=== PATIENT | female | born 1940 | race Caucasian/White ===

== ENCOUNTER 2025-06-04 21:37 | Inpatient (IN) | payer MEDICARE, OTHER, SELFPAY ==
[2025-06-04] VITALS (8 sets, daily range): BP systolic 86–115; BP diastolic 43–97
[2025-06-04 17:51] LABS: Hematocrit 35.0 % (37.0-47.0); Hemoglobin 11.0 g/dL (12.0-16.0); Mean Corp Hgb Conc. 31.4 g/dL (33.0-37.0); Mean Corpuscular Volume 89.1 fL (81.0-99.0); Nucleated Red Blood Cells % 0 %; Platelet Count 227 10^3/uL (130-400); Red Cell Dist. Width 18.9 % (11.5-14.5)
[2025-06-04 18:12] LABS: Troponin I < 0.012 ng/ml
[2025-06-04 18:19] LABS: ALT (SGPT) 66 U/L (0-35); AST (SGOT) 62 U/L (14-36); Albumin 2.3 g/dl (3.5-5.0); Alkaline Phosphatase 112 U/L (38-126); Blood Urea Nitrogen 31 mg/dl (7-17); Calcium 7.7 mg/dl (8.4-10.2); Carbon Dioxide 28 mmol/L (22-30); Chloride 106 mmol/L (98-107); Glucose 94 mg/dl (70-99); Potassium 3.8 mmol/L (3.5-5.1); Sodium 138 mmol/L (135-145); Total Protein 5.9 g/dl (6.3-8.2); eGFR 40.05
--- NOTE | 2025-06-04 18:30 | ED.GENMED ---
History of Present Illness
<Hakan Sanchez PA-C - Last Filed: 06/04/25 20:29>
General
Chief Complaint: Breathing Problem
Time Seen by Provider: 06/04/25 17:59
History of Present Illness
History of Present Illness:
84-year-old female presents the emergency department for evaluation of leg edema, leg weakness, and dyspnea. Patient was apparently admitted to [facility] in April for COVID-pneumonia with respiratory failure, was discharged from
there to skilled rehab on supplemental oxygen due to persistent hypoxemia. Within the past several days she was discharged from skilled rehab to assisted living but has been increasingly weak and having difficulty ambulating at her baseline. I do
not have all records immediately available but the daughter tells me that she apparently had her diuretic discontinued at some point in time, it is not clear whether this occurred during her last admission or at a different time. She denies any
fevers, coughing, or shortness of breath at present.
Past History
<Hakan Sanchez PA-C - Last Filed: 06/04/25 20:29>
Past History
ED Past Medical History: HTN and Other (Alcohol issue)
ED Past Surgical History: Gynecological (Breast surgery)
Social History
Tobacco: Non-smoker
Alcohol: Binge drinker
Personal:
Living: with family
Review of Systems
<Hakan Sanchez PA-C - Last Filed: 06/04/25 20:29>
Review of Systems
Allergies reviewed?: Yes
All Other Systems: ROS reviewed and negative except as documented in HPI and ROS
Phy Exam
<Hakan Sanchez PA-C - Last Filed: 06/04/25 20:29>
Physical Exam
Physical Exam:
GEN: Well appearing, NAD, WDWN
HEENT: Oral mucosa moist, no scleral icterus
Cardiac: Regular rate
Lung: No respiratory distress, no tachypnea, rales throughout
MSK: No gross deformity or injuries, 2+ pitting edema BLE
Skin: Good color, no pallor or jaundice, no rashes
Neuro: AO x3, moves all extremities freely
Psych: Calm, cooperative
Scores
<Hakan Sanchez PA-C - Last Filed: 06/04/25 20:29>
Heart Failure Risk
Heart Failure Risk Score: Not Applicable
Course
<Hakan Sanchez PA-C - Last Filed: 06/04/25 20:29>
Orders/Labs/Results
Orders:
Orders
06/04/25 17:23
Electrocardiogram (*1) Urgent
Reason for Study: Other
Other Reason for Exam: Respiratory Distress
Cardiac Monitoring- Treatment ONCE
IV Insert/Care/Rem.- Treatment PRN
CR Chest - 2 Views Urgent
Comment:
Reason For Exam: respiratory distress
06/04/25 17:36
Complete Blood Count/With Diff Urgent
Comprehensive Metabolic Panel Urgent
NT-proBNP Urgent
Troponin I Urgent
06/04/25 18:32
Furosemide [Lasix] 20 mg IV NOW STA
Potassium Chloride [KCl] 20 meq PO NOW STA
06/04/25 21:19
Admit/Transfer Patient As Directed
Co-Sign Provider:
Level of Care: Inpatient admission
Assign to:: Telemetry
Physician / Group: zainab
Diagnosis: pneumonia
Reason for Telemetry: Other
Other Reason for Telemetry: hypotension
Date to Stop Telemetry: 06/06/25
Time to Stop Telemetry: 11:00
Reason for Hospitalization: pneumonia
Expected length of stay greater than two midnights?: Yes
ELOS- Estimated Length of Stay in days: 3
I certify the patient meets the requirements for IP care: Yes
PRN Pain Medication Management As Directed
May give lesser potent ordered pain med per pt: Yes
preference::
Protocol:: Medication orders for pain may be administered in a
manner that supports deferring to patient preference
when the pt is:
- Requesting an ordered lesser potent pain medication.
Least to most potent pain medications are defined
as: acetaminophen < NSAID < tramadol < opioids
(morphine, oxycodone, hydromorphone).
- Requesting a lesser dose of the same medication IF
ORDERED.
- Requesting a less intrusive route of administration
if both routes are prescribed by the provider (PO <
IV).
06/04/25 21:25
Code Status As Directed
Resuscitation Status: Full Code
06/04/25 22:50
Acetaminophen [Tylenol] 650 mg PO Q4HPRN PRN
Atorvastatin [Lipitor] 20 mg PO HS
Ipratropium/Albuterol Sulfate [Duoneb] 3 ml INH R Q4HPRN PRN
Latanoprost [Xalatan Ophthalmic Solution] 1 drop LEFT EYE HS
Lorazepam [Ativan] 0.5 mg PO DAILYPRN PRN anxiety
Melatonin 5 mg PO HS
06/04/25 22:50
Activity As Directed
Activity Level: Out of Bed-Early Mobility
Vital Signs As Directed
Frequency: Per unit guidelines
06/04/25 23:00
Loratadine [Claritin] 10 mg PO HS
06/05/25 01:30
Complete Blood Count/No Diff IN AM
06/05/25 01:31
Comprehensive Metabolic Panel IN AM
06/05/25 06:00
Levothyroxine [Synthroid] 75 mcg PO DAILY@0600
06/05/25 08:00
Amiodarone [Pacerone] 200 mg PO BID
Apixaban [Eliquis] 5 mg PO BID
Brimonidine [Alphagan 0.2% Eye Drops] 1 drop LEFT EYE BID
Carvedilol [Coreg] 3.125 mg PO BID
Dapagliflozin [Farxiga] 10 mg PO DAILY
Dorzolamide HCl [Trusopt 2% Ophthalmic Solution] 1 drop LEFT EYE BID
Escitalopram Oxalate [Lexapro] 15 mg PO DAILY
Ferrous Sulfate [Feosol] 325 mg PO DAILY
Fluticasone/Salmeterol 115/21 [Advair Hfa 115/21 Mcg Inhaler] 2 puff INH R BID
Oxybutynin Chloride [Ditropan] 5 mg PO TID
Potassium Chloride [KCl] 20 meq PO DAILY
06/05/25 12:00
Digoxin [Lanoxin] 125 mcg PO NOON
06/06/25 10:46
Complete Blood Count/No Diff IN AM
Comprehensive Metabolic Panel IN AM
06/07/25 05:04
Complete Blood Count/No Diff IN AM
Comprehensive Metabolic Panel IN AM
06/08/25 03:36
Complete Blood Count/No Diff IN AM
Comprehensive Metabolic Panel IN AM
Abnormal Lab Results
06/04/25
17:36
WBC 11.3 H 10^3/uL
(4.8-10.8)
RBC 3.93 L 10^6/uL
(4.20-5.40)
Hgb 11.0 L g/dL
(12.0-16.0)
Hct 35.0 L %
(37.0-47.0)
MCHC 31.4 L g/dL
(33.0-37.0)
RDW 18.9 H %
(11.5-14.5)
Abs Immat Gran (auto) 0.2 H 10^3/uL
(0-0.05)
Absolute Neuts (auto) 9.1 H 10^3/uL
(1.4-6.5)
Absolute Lymphs (auto) 1.1 L 10^3/uL
(1.2-3.4)
Absolute Monos (auto) 0.8 H 10^3/uL
(0.1-0.6)
Immature Gran % 1.9 H %
(0-0.5)
Neutrophils % 79.8 H %
(42.2-75.2)
Lymphocytes % 9.9 L %
(20.5-51.1)
BUN 31 H mg/dl
(7-17)
Creatinine 1.3 H mg/dL
(0.6-1.0)
Calcium 7.7 L mg/dl
(8.4-10.2)
AST 62 H U/L
(14-36)
ALT 66 H U/L
(0-35)
Total Protein 5.9 L g/dl
(6.3-8.2)
Albumin 2.3 L g/dl
(3.5-5.0)
06/04/25 17:36
06/04/25 17:36
Vital Signs
Initial and Last Documented VS:
Initial Vital Signs
Temp Pulse Resp BP Pulse Ox
36.5 C 67 18 108/51 96
06/04/25 17:24 06/04/25 17:24 06/04/25 17:24 06/04/25 17:24 06/04/25 17:24
Last Documented Vital Signs
Temp Pulse Resp BP Pulse Ox
97.7 F 60 23 113/97 96
06/04/25 17:24 06/04/25 19:45 06/04/25 19:45 06/04/25 19:04 06/04/25 18:34
<Higinio Copeland, DO - Last Filed: 06/11/25 06:47>
Orders/Labs/Results
Orders:
Orders
06/04/25 17:23
Electrocardiogram (*1) Urgent
Reason for Study: Other
Other Reason for Exam: Respiratory Distress
Cardiac Monitoring- Treatment ONCE
IV Insert/Care/Rem.- Treatment PRN
CR Chest - 2 Views Urgent
Comment:
Reason For Exam: respiratory distress
06/04/25 17:36
Complete Blood Count/With Diff Urgent
Comprehensive Metabolic Panel Urgent
NT-proBNP Urgent
Troponin I Urgent
06/04/25 18:32
Furosemide [Lasix] 20 mg IV NOW STA
Potassium Chloride [KCl] 20 meq PO NOW STA
06/04/25 21:19
Admit/Transfer Patient As Directed
Co-Sign Provider:
Level of Care: Inpatient admission
Assign to:: Telemetry
Physician / Group: zainab
Diagnosis: pneumonia
Reason for Telemetry: Other
Other Reason for Telemetry: hypotension
Date to Stop Telemetry: 06/06/25
Time to Stop Telemetry: 11:00
Reason for Hospitalization: pneumonia
Expected length of stay greater than two midnights?: Yes
ELOS- Estimated Length of Stay in days: 3
I certify the patient meets the requirements for IP care: Yes
PRN Pain Medication Management As Directed
May give lesser potent ordered pain med per pt: Yes
preference::
Protocol:: Medication orders for pain may be administered in a
manner that supports deferring to patient preference
when the pt is:
- Requesting an ordered lesser potent pain medication.
Least to most potent pain medications are defined
as: acetaminophen < NSAID < tramadol < opioids
(morphine, oxycodone, hydromorphone).
- Requesting a lesser dose of the same medication IF
ORDERED.
- Requesting a less intrusive route of administration
if both routes are prescribed by the provider (PO <
IV).
06/04/25 21:25
Code Status As Directed
Resuscitation Status: Full Code
06/04/25 22:50
Acetaminophen [Tylenol] 650 mg PO Q4HPRN PRN
Atorvastatin [Lipitor] 20 mg PO HS
Ipratropium/Albuterol Sulfate [Duoneb] 3 ml INH R Q4HPRN PRN
Latanoprost [Xalatan Ophthalmic Solution] 1 drop LEFT EYE HS
Lorazepam [Ativan] 0.5 mg PO DAILYPRN PRN anxiety
Melatonin 5 mg PO HS
06/04/25 22:50
Activity As Directed
Activity Level: Out of Bed-Early Mobility
Vital Signs As Directed
Frequency: Per unit guidelines
06/04/25 23:00
Loratadine [Claritin] 10 mg PO HS
06/05/25 01:30
Complete Blood Count/No Diff IN AM
06/05/25 01:31
Comprehensive Metabolic Panel IN AM
06/05/25 06:00
Levothyroxine [Synthroid] 75 mcg PO DAILY@0600
06/05/25 08:00
Amiodarone [Pacerone] 200 mg PO BID
Apixaban [Eliquis] 5 mg PO BID
Brimonidine [Alphagan 0.2% Eye Drops] 1 drop LEFT EYE BID
Carvedilol [Coreg] 3.125 mg PO BID
Dapagliflozin [Farxiga] 10 mg PO DAILY
Dorzolamide HCl [Trusopt 2% Ophthalmic Solution] 1 drop LEFT EYE BID
Escitalopram Oxalate [Lexapro] 15 mg PO DAILY
Ferrous Sulfate [Feosol] 325 mg PO DAILY
Fluticasone/Salmeterol 115/21 [Advair Hfa 115/21 Mcg Inhaler] 2 puff INH R BID
Oxybutynin Chloride [Ditropan] 5 mg PO TID
Potassium Chloride [KCl] 20 meq PO DAILY
06/05/25 12:00
Digoxin [Lanoxin] 125 mcg PO NOON
06/06/25 10:46
Complete Blood Count/No Diff IN AM
Comprehensive Metabolic Panel IN AM
06/07/25 05:04
Complete Blood Count/No Diff IN AM
Comprehensive Metabolic Panel IN AM
06/08/25 03:36
Complete Blood Count/No Diff IN AM
Comprehensive Metabolic Panel IN AM
Abnormal Lab Results
06/04/25
17:36
WBC 11.3 H 10^3/uL
(4.8-10.8)
RBC 3.93 L 10^6/uL
(4.20-5.40)
Hgb 11.0 L g/dL
(12.0-16.0)
Hct 35.0 L %
(37.0-47.0)
MCHC 31.4 L g/dL
(33.0-37.0)
RDW 18.9 H %
(11.5-14.5)
Abs Immat Gran (auto) 0.2 H 10^3/uL
(0-0.05)
Absolute Neuts (auto) 9.1 H 10^3/uL
(1.4-6.5)
Absolute Lymphs (auto) 1.1 L 10^3/uL
(1.2-3.4)
Absolute Monos (auto) 0.8 H 10^3/uL
(0.1-0.6)
Immature Gran % 1.9 H %
(0-0.5)
Neutrophils % 79.8 H %
(42.2-75.2)
Lymphocytes % 9.9 L %
(20.5-51.1)
BUN 31 H mg/dl
(7-17)
Creatinine 1.3 H mg/dL
(0.6-1.0)
Calcium 7.7 L mg/dl
(8.4-10.2)
AST 62 H U/L
(14-36)
ALT 66 H U/L
(0-35)
Total Protein 5.9 L g/dl
(6.3-8.2)
Albumin 2.3 L g/dl
(3.5-5.0)
06/04/25 17:36
06/04/25 17:36
Vital Signs
Initial and Last Documented VS:
Initial Vital Signs
Temp Pulse Resp BP Pulse Ox
36.5 C 67 18 108/51 96
06/04/25 17:24 06/04/25 17:24 06/04/25 17:24 06/04/25 17:24 06/04/25 17:24
Last Documented Vital Signs
Temp Pulse Resp BP Pulse Ox
97.7 F 60 23 113/97 96
06/04/25 17:24 06/04/25 19:45 06/04/25 19:45 06/04/25 19:04 06/04/25 18:34
<Hakan Sanchez PA-C - Last Filed: 06/04/25 20:29>
MDM/Problems Addressed
MDM/Problems Addressed:
Patient does not have any signs or symptoms of infection at this time thus her chest x-ray findings most likely represent pulmonary edema coupled with new leg edema. Will start gentle IV diuresis and admit to the hospitalist service for further
management. No clinical concern for PE given use of anticoagulants
<Hakan Sanchez PA-C - Last Filed: 06/04/25 20:29>
Comment
Comment:
EKG shows a V paced rhythm
*Pulse Oximetry
SaO2: 96
Nasal Cannula flow liters per minute: 6
Patient hypoxic: no
*Critical Care Note
Total Time (30-74mins, 75-104mins- exclusive of procedures): Not Applicable
ED Attending Note
<Hakan Sanchez PA-C - Last Filed: 06/04/25 20:29>
-
Portions of this chart may have been created with voice recognition software.� Occasional wrong word or��sound alike� substitutions may have occurred due to the inherent limitations of voice recognition software.
<Higinio Copeland, DO - Last Filed: 06/11/25 06:47>
ED Attending Note
Patient seen and examined by attending physician: Yes
I performed the substantive portion of visit, reviewed & personally made and approve the management plan that is documented in note by myself or PRADIP.: Yes
ED Attending Note:
I evaluated the patient at bedside. The BNP is 7570 with no old to compare. Troponin unremarkable. Chest x-ray shows bilateral infiltrate/consolidation. The patient overall appears very weak and debilitated and reportedly has increasing oxygen
requirement.
Discharge Plan
Departure
Patient Disposition: Admit
Date of Disposition: 06/04/25
Time of Disposition: 18:37
Admit to: Telemetry
Presentation/result/management discussed w/ accepting MD/DO: Hospitalist
Discharge Problem:
Acute CHF
Interventions
Interventions:
*Risk Screen - Suicide Last Done: 06/04/25 17:24
*General Assessment Last Done: 06/04/25 17:24
*Neglect/Abuse Screening Last Done: 06/04/25 17:24
*ED- Fall Risk Assessment Last Done: 06/04/25 18:19
*ED COVID-19 Vaccine History Last Done: 06/04/25 18:24
*Nursing Disposition Last Done: 06/04/25 22:49
ED- Cardiac Assessment Last Done: 06/04/25 18:19
ED- Pulmonary Assessment Last Done: 06/04/25 18:19
Discharge Date and Time
Discharge Date/Time: 06/04/25 22:49
[2025-06-04] MEDS: KCL 20 MEQ PO (19:00)
[2025-06-04] MEDS: LASIX 20 MG IV (19:02)
--- NOTE | 2025-06-04 21:16 | HPS.HSE ---
Family Physician
-
Family Physician: Chris Taylor
Chief Complaint
-
Generalized weakness
History of Present Illness
84-year-old very pleasant female accompanied by the daughter at the bedside, she was admitted months of April and [place] for COVID infection and from they went to a rehab and eventually transferred to personal assist, she has known history of
A-fib, hypertension, sent to the hospital for evaluation of generalized weakness and concern for worsening lower extremity edema and shortness of breath.
She is awake, alert and able to provide little information denies shortness of breath worsening lower extremity edema, admitted in the [facility] they checked her vitals and the nurses did not like it therefore they decided to send her to the
hospital, she is on oxygen. Otherwise denied documented fever but admits chill, generalized weakness, poor appetite and drinking as she looks extremely dry and dehydrated, denies any urinary or GI symptoms, no chest pain or palpitation or any
weakness or numbness in extremity.
X-ray of chest concerning for bilateral infiltration
Given a dose of Lasix in the ER and she looks extremely dry and her urine is dark and concentrated. Her daughter at the bedside provide some of the information's.
Medical History
Past Medical History
Past Medical History: Reports Other
Additional Past Medical History:
Past medical history:
Hypertension
Osteoarthritis
Osteoarthritis
Polymyalgia rheumatica
Osteopenia
Fibrocystic disease of breast
A-fib
Dyslipidemia
Surgical history:
Knee arthroscopy
Tonsillectomy
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
No smoking no alcohol or drug use.
Family history: Reviewed and noncontributory
Past Surgical History: Reports Other
Social History
Unable to obtain full social history at this time due to: Other
Family History
Family History: Other
Allergies / Home Medications
Allergies reflects when Allergies were last updated in [facility].
Home Medications with original date entered in [facility]
Allergy/Medication List:
Allergies
Allergy/AdvReac Type Severity Reaction Status Date / Time
Cephalosporins Allergy Unknown Verified 06/04/25 21:40
ibuprofen Allergy Unknown Verified 06/04/25 21:40
NSAIDS (Non-Steroidal Allergy Unknown Verified 06/04/25 21:40
Anti-Inflamma
penicillin G Allergy Unknown Verified 06/04/25 21:40
Penicillins Allergy Unknown Verified 06/04/25 21:40
Home Medications
potassium chloride 20 mEq tablet,extended release 20 meq PO DAILY 08/25/12
acetaminophen 325 mg tablet (Tylenol) 650 mg PO Q6HPRN PRN mild pain 06/04/25
albuterol sulfate 90 mcg/actuation aerosol inhaler 2 puff inhalation R Q8HPRN PRN sob 06/04/25
amiodarone 200 mg tablet 200 mg PO BID 06/04/25
apixaban 5 mg tablet (Eliquis) 5 mg PO BID 06/04/25
atorvastatin 20 mg tablet (Lipitor) 20 mg PO HS 06/04/25
brimonidine 0.2 % eye drops 1 drp LEFT EYE BID 06/04/25
carvedilol 3.125 mg tablet (Coreg) 3.125 mg PO BID 06/04/25
cholecalciferol (vitamin D3) 50 mcg (2,000 unit) tablet (Vitamin D3) 50 mcg PO DAILY 06/04/25
cyanocobalamin (vitamin B-12) 1,000 mcg tablet 1,000 mcg PO DAILY 06/04/25
dapagliflozin propanediol 10 mg tablet (Farxiga) 10 mg PO DAILY 06/04/25
digoxin 125 mcg (0.125 mg) tablet 125 mcg PO DAILY 06/04/25
dorzolamide 2 % eye drops 1 drp LEFT EYE BID 06/04/25
escitalopram oxalate 5 mg tablet (Lexapro) 15 mg PO DAILY 06/04/25
ferrous sulfate 325 mg (65 mg iron) tablet 325 mg PO DAILY 06/04/25
fexofenadine 60 mg tablet 60 mg PO HS 06/04/25
fluticasone 250 mcg-salmeterol 50 mcg/dose blistr powdr for inhalation (Advair Diskus) 1 inh inhalation R BID 06/04/25
furosemide 20 mg tablet (Lasix) 20 mg PO DAILY 06/04/25
ipratropium 0.5 mg-albuterol 3 mg (2.5 mg base)/3 mL nebulization soln 3 ml inhalation R QID 06/04/25
latanoprost 0.005 % eye drops 1 drp LEFT EYE HS 06/04/25
levothyroxine 75 mcg tablet (Synthroid) 75 mcg PO DAILY 06/04/25
lorazepam 0.5 mg tablet 0.5 mg PO DAILYPRN PRN anxiety 06/04/25
melatonin 5 mg tablet 5 mg PO HS 06/04/25
oxybutynin chloride 15 mg tablet,extended release 24 hr 15 mg PO DAILY 06/04/25
sennosides 8.6 mg tablet (senna) 8.6 mg PO DAILYPRN PRN constipation 06/04/25
Review of Systems
-
A 12 point ROS was completed and negative except as noted: Yes
Physical Exam
Vital Signs
Vital Signs
Temp Pulse Resp BP Pulse Ox
97.7 F 60 23 113/97 96
06/04/25 17:24 06/04/25 19:45 06/04/25 19:45 06/04/25 19:04 06/04/25 18:34
Physical exam:
General: Awake, oriented x3, pale looking, lethargic but not not in distress and holds appropriate conversation.
HEENT: No active discharge, ecchymosis or bruising, very dry lips, tongue and mucous membrane.
Eyes: No discharge or red conjunctiva, no nystagmus, pupils are reactive and equal
Neck:Supple, no JVD no bruit no goiter.
Respiratory: Normal AP contour and diameter, normal chest wall movement, normal respiratory effort, no respiratory distress,
Lungs: Good air entry bilaterally, no wheezing or rhonchi, no rales, dry crackles basilar
Heart: S1, S2 regular, normal rate, no added sound. Pacemaker is present
Gastrointestinal: Positive bowel sounds, soft, nontender, no guarding or rigidity or organomegaly
Musculoskeletal: , no chest wall abnormality or tenderness. All joints and extremities have good range of motion, no muscle tenderness or any joint swelling or tenderness.
Extremities: Mild bilateral lower extremity pitting edema, good peripheral pulses, good range of motion
Skin: Warm and dry, no ulceration, normal color.
Neurological: Awake, alert and oriented x3, mild cognitive decline appreciated, no facial droop, speech clear and comprehensive, good muscle tone, normal sensory and motor function
Psychiatric: Normal mood, normal thought and judgment, normal affect,
Physical Exam
General: Other
Laboratory Results
-
06/04/25 17:36
06/04/25 17:36
Laboratory Results
Total Bilirubin 0.9 mg/dl (0.2-1.3) 06/04/25 17:36
AST 62 U/L (14-36) H 06/04/25 17:36
ALT 66 U/L (0-35) H 06/04/25 17:36
Alkaline Phosphatase 112 U/L (38-126) 06/04/25 17:36
Troponin I < 0.012 ng/ml 06/04/25 17:36
Chest x-ray:There are bilateral patchy airspace opacities which likely represent multifocal pneumonia.
EKG: dual paced rhythm, rate around 70,
Data Reviewed
-
Diagnostic Radiology: Report Reviewed by me and Discussed with Family
Medical Tests (Nuc Med, Echo, EKG etc): Image Personally Visualized and interpreted
Lab Data: Labs Reviewed by me
Old Records: Reviewed
Impression/Plan
-
IMPRESSION:
84-year-old female was recently in [place] for COVID then rehab presented to the hospital complaining of generalized weakness, subjective fever and chill and x-ray showed bilateral infiltration concerning for pneumonia more than CHF as she looks
extremely dry and dehydrated, while CHF could be a possibility but unlikely.
Concern for pneumonia:
Healthcare acquired pneumonia and post COVID
Cover with Vanco and cefepime for now with close monitoring
Check procalcitonin if negative then antibiotic can be discontinued.
Will hold off further IV Lasix as she looks extremely dry
IV fluids discussed with the patient and the daughter with close monitoring of the fluid status
Encourage oral hydration
Breathing treatment
Looks like recently her oral Lasix been discontinued (on hold.
Abnormal chest x-ray: As above if there is concern may need get a CT chest to rule out fibrosis more than CHF or.
A-fib continue Eliquis, amiodarone and digoxin and carvedilol.
Generalized weakness: PT OT and assess functional status.
Chronic hypoxic aspiratory failure: Started after recent COVID infection on 2 L oxygen we will continue
All discussed with the patient and the daughter in detail and they expressed understanding and all the question answered
CODE STATUS full code
DVT prophylaxis
[2025-06-04] MEDS: NSS 1000 IV (23:54)
[2025-06-04] MEDS: MELATONIN 5 MG PO (23:54)
[2025-06-04] MEDS: CLARITIN 10 MG PO (23:54)
[2025-06-04] MEDS: LIPITOR 20 MG PO (23:54)
[2025-06-04] MEDS: XALATAN OPHTHALMIC SOLUTION 1 DROP LEFT EYE (23:55)
[2025-06-05] VITALS (10 sets, daily range): BP systolic 96–129; BP diastolic 40–65; PULSE 60–77; O2SAT 96
[2025-06-05] MEDS: STERILE WATER FOR INJECTION 10 ML IV ×3 (00:32→15:02)
[2025-06-05] MEDS: MAXIPIME 1000 MG IV ×3 (00:33→15:02)
[2025-06-05] MEDS: VANCOCIN 530 MG IV (00:51)
[2025-06-05] MEDS: DUONEB 3 ML INH (01:20)
--- NOTE | 2025-06-05 01:20 | W.PN.UPDATE ---
Update Note
Progress Note Update
Patient is hypoxic 87% on 6 L. afebrile, Complaining of SOB. Patient has inhalers listed in the med list but per the patient she does not use it. Patient was a smoker for 25 years.
-Diminished lung sound on exam
-covid,flu, abg, cbc, bmp, troponin and duo neb PRN
-Covid and Flu (neg)
-Chest x-ray result this evening noted.
-Abg and lab work result result unremarkable
- Patient feel better after duo nebs, will continue PRN.
-Currently patient is comfortable with Spo2 94% on 8-10 L O2 will try to wean gradually.
[2025-06-05 01:43] LABS: B.E. 1.8 mmol/L; HCO3 27.2 mmol/L (21-28); O2 Saturation % 98.5 % (94-98); PCO2 45 mmHg (32-35); PO2 94 mmHg (83-108)
[2025-06-05 01:44] LABS: Hematocrit 34.6 % (37.0-47.0); Hemoglobin 11.2 g/dL (12.0-16.0); Mean Corp Hgb Conc. 32.4 g/dL (33.0-37.0); Mean Corpuscular Volume 88.3 fL (81.0-99.0); Platelet Count 232 10^3/uL (130-400); Red Cell Dist. Width 19.0 % (11.5-14.5)
[2025-06-05 02:04] LABS: COVID-19 Antigen Negative (Negative)
[2025-06-05 02:09] LABS: ALT (SGPT) 57 U/L (0-35); AST (SGOT) 55 U/L (14-36); Albumin 2.1 g/dl (3.5-5.0); Alkaline Phosphatase 96 U/L (38-126); Blood Urea Nitrogen 31 mg/dl (7-17); Calcium 7.8 mg/dl (8.4-10.2); Carbon Dioxide 27 mmol/L (22-30); Chloride 110 mmol/L (98-107); Estimated Creatinine Clearance 34 ml/min; Glucose 104 mg/dl (70-99); Potassium 4.1 mmol/L (3.5-5.1); Sodium 139 mmol/L (135-145); Total Protein 5.5 g/dl (6.3-8.2); eGFR 48.94
[2025-06-05 02:20] LABS: Troponin I < 0.012 ng/ml
--- NOTE | 2025-06-05 03:57 | PTCARENOTE ---
Received patient from ED. No respiratory distress noted upon arrival. Alert, oriented and able to complete admission assessment. While repositioning patient, pt reporting difficulty breathing, stating 'I can't breathe' and feeling lightheaded.
Pt arrived from ED on 6L O2 and found to be 86-87% on 6L during episode. CUTTER IN at bedside to assess patient and Respiratory at bedside for neb. Pt appeared more comfortable post neb and pt placed on midflow. Bed alarm in place, call gutiérrez within
reach. Pt placed on telemetry with continuous pulse ox.
[2025-06-05] MEDS: SYNTHROID 75 MCG PO (06:07)
[2025-06-05] MEDS: ADVAIR HFA 115/21 MCG INHALER 2 PUFF INH ×2 (07:25→19:30)
--- NOTE | 2025-06-05 07:57 | PHA.VAN.IN ---
Assessment
- Assessment
Renal Function: Unknown baseline
Concomitant Antimicrobials: cefepime
Plan
- Plan
Initial / Loading Dose: 1500mg - 06/05 00:51
Maintenance Regimen: dosing by level - give additional 500mg to maintain level
Monitoring: random 06/06 0600
MRSA Screen: Ordered per protocol
Pharmacokinetics Vancomycin I
- -
Patient Age: 84
Patient Sex: Female
Vancomycin Day #: 1
Indication: Pulmonary/Respiratory
Requesting Provider: Ang Arellano
Pertinent Antimicrobial Allergies:
penicillins - unknown
cephalosporins - unknown
Height / Weight:
Height 5 ft 6 in
Actual Weight 76.1 kg
Pertinent Past Medical History: COVID
- Vital Signs / Lab Results
Temp Pulse Resp BP Pulse Ox
97.5 F 61 18 96/47 94
06/05/25 07:56 06/05/25 07:56 06/05/25 07:56 06/05/25 07:56 06/05/25 07:56
Lab Results - Hematology
06/04/25 06/05/25
17:36 01:30
WBC 11.3 H 9.0
Lab Results - Chemistry
06/04/25 06/05/25
17:36 01:31
BUN 31 H 31 H
Creatinine 1.3 H 1.1 H
Estimated Creat Clear 34
Albumin 2.3 L 2.1 L
Microbiology Results
06/05/25 01:41 Influenza Types A & B (GEOFF) - Final
Nasal Swab Negative for Influenza A & B, NAAT
Negative results must be combined with clinical observations
and patient history.
Nucleic Acid Amplification test (NAAT)performed on the
[employer] platform.
[2025-06-05] MEDS: FARXIGA 10 MG PO (09:10)
[2025-06-05] MEDS: ELIQUIS 5 MG PO ×2 (09:10→21:41)
[2025-06-05] MEDS: LEXAPRO 15 MG PO (09:10)
[2025-06-05] MEDS: FEOSOL 325 MG PO (09:11)
[2025-06-05] MEDS: COREG PO (09:15)
[2025-06-05] MEDS: KCL 20 MEQ PO (09:16)
[2025-06-05] MEDS: DITROPAN 5 MG PO ×3 (09:16→21:42)
[2025-06-05] MEDS: PACERONE PO (09:16)
[2025-06-05] MEDS: TRUSOPT 2% OPHTHALMIC SOLUTION 1 DROP LEFT EYE ×2 (09:21→21:41)
[2025-06-05] MEDS: ALPHAGAN 0.2% EYE DROPS 1 DROP LEFT EYE ×2 (09:21→21:41)
[2025-06-05] MEDS: LANOXIN 125 MCG PO (11:55)
[2025-06-05] MEDS: VANCOCIN HCL 500 MG 100 IV (11:55)
--- NOTE | 2025-06-05 14:30 | W.PN.HOSP.TC ---
Today's Communication/Plan
-
see bold
Assessment / Plan
Assessment / Plan
HPI: 84-year-old female was recently in [place] for COVID then rehab presented to the hospital complaining of generalized weakness, subjective fever and chill and x-ray showed bilateral infiltration concerning for pneumonia more than CHF as she
looks extremely dry and dehydrated, while CHF could be a possibility but unlikely.
#Healthcare acquired pneumonia and post COVID
#Acute on chronic hypoxic respiratory failure
Currently requiring 8 L of oxygen, wean as tolerated. She wears 2 L at baseline
COVID/influenza negative, requested strep/Legionella antigens. +MRSA by nasal PCR
Continue vancomycin and cefepime, Mucinex, bronchodilators
Trend fever and white count
#Weakness
PT/OT recommend skilled rehab
#Paroxysmal atrial fibrillation
AV dual paced
Continue Coreg, digoxin, amiodarone, Eliquis
#Prolonged QTc
Avoid Zofran and other QTc prolonging agents
#Hyperlipidemia
Continue statin
#Hypothyroidism
Continue levothyroxine
DVT prophylaxis�Eliquis
Full code
Total time spent to see the patient on the floor, examine the patient, review data and lab results, discuss treatment plan with patient, nursing staff around 45 minutes.
Physical Exam
General: Appears to not feel well, no acute distress
HEENT: Normocephalic, Atraumatic, EOMI, MMM
Respiratory: Bibasilar crackles
Cardiac: Normal S1/S2, Regular Rate and Rhythm
GI: Soft, Nontender, Nondistended, Normal Bowel Sounds
Extremities: No Clubbing, Cyanosis, or Edema
Neuro: Nonfocal/Grossly Intact
Anticipated Discharge: 24 - 48 hours
Subjective/Interval History
-
Date of Service: June 05, 2025
Patient reports feeling lightheaded. She denies shortness of breath, chest pain, cough. No fever.
Objective Data
-
Labs:
Laboratory Results
06/05/25
01:31
WBC Cancelled
Hgb Cancelled
Hct Cancelled
Plt Count Cancelled
Vital Signs:
Vital Signs
Temp Pulse Resp BP Pulse Ox
97.6 F 61 20 101/48 97
06/05/25 12:16 06/05/25 12:16 06/05/25 12:16 06/05/25 12:16 06/05/25 12:16
[2025-06-05] MEDS: NSS 1000 IV (15:01)
--- NOTE | 2025-06-05 16:32 | CM ---
Patient seen at bedside
IA completed
Left message with dtr Lashaun [phone]
Patient resides at [facility]
Left message with [facility] [phone]
PLOF: Independent, states does not use assistive device
DME: Walker, cane, shower chair, wheelchair
States current with [facility], had been at [facility] recently
PT rec SNF - [facility], [facility] & [facility]
no pre-auth
PCP: Chris Taylor
Pharmacy: [facility]
PLAN; SNF, pending bed availability when stable, CM to cont to follow
--- NOTE | 2025-06-05 18:33 | PTCARENOTE ---
Pt on 8L of O2 with saturation fluctuating between high 80's to 90's. Bumped up to 10L with MD/[employer] made aware of pt current vitals and requirement of high o2 levels. Pt being moved to IMU per MD orders for possible need of higher o2
levels with closer monitoring. Family at bedside, aware of current POC. No current complaints, plan of care ongoing.
[2025-06-05] MEDS: PACERONE 200 MG PO (21:41)
[2025-06-05] MEDS: MELATONIN 5 MG PO (21:41)
[2025-06-05] MEDS: CLARITIN 10 MG PO (21:41)
[2025-06-05] MEDS: COREG 3.125 MG PO (21:41)
[2025-06-05] MEDS: LIPITOR 20 MG PO (21:41)
[2025-06-05] MEDS: XALATAN OPHTHALMIC SOLUTION 1 DROP LEFT EYE (21:42)
[2025-06-06] VITALS (34 sets, daily range): BP systolic 84–129; BP diastolic 39–108; BMI 26.9
[2025-06-06] MEDS: STERILE WATER FOR INJECTION 10 ML IV ×4 (00:32→23:02)
[2025-06-06] MEDS: MAXIPIME 1000 MG IV ×4 (00:32→23:02)
[2025-06-06] MEDS: NSS 1000 IV (00:33)
[2025-06-06] MEDS: SYNTHROID 75 MCG PO (05:50)
--- NOTE | 2025-06-06 06:20 | PTCARENOTE ---
Pt arrived to floor from [address] West in bed; Pt slid over to new bed; NSS infusing into R Wrist INT; 97% on 10L O2 via MF NC; RODRIGUEZ; 100% AV Paced on monitor; AAO x 3; Will continue to monitor
[2025-06-06] MEDS: ADVAIR HFA 115/21 MCG INHALER 2 PUFF INH ×2 (08:05→20:37)
[2025-06-06] MEDS: LEXAPRO 15 MG PO (09:22)
[2025-06-06] MEDS: FARXIGA 10 MG PO (09:23)
[2025-06-06] MEDS: ELIQUIS 5 MG PO ×2 (09:23→20:00)
[2025-06-06] MEDS: FEOSOL 325 MG PO (09:23)
[2025-06-06] MEDS: DITROPAN 5 MG PO ×3 (09:23→21:36)
[2025-06-06] MEDS: KCL 20 MEQ PO (09:25)
[2025-06-06] MEDS: TRUSOPT 2% OPHTHALMIC SOLUTION 1 DROP LEFT EYE ×2 (09:32→20:11)
[2025-06-06] MEDS: ALPHAGAN 0.2% EYE DROPS 1 DROP LEFT EYE ×2 (09:32→20:11)
[2025-06-06 11:11] LABS: Hematocrit 32.1 % (37.0-47.0); Hemoglobin 10.7 g/dL (12.0-16.0); Mean Corp Hgb Conc. 33.3 g/dL (33.0-37.0); Mean Corpuscular Volume 88.9 fL (81.0-99.0); Red Cell Dist. Width 18.8 % (11.5-14.5)
[2025-06-06 11:21] LABS: ALT (SGPT) 65 U/L (0-35); AST (SGOT) 67 U/L (14-36); Albumin 1.9 g/dl (3.5-5.0); Alkaline Phosphatase 94 U/L (38-126); Blood Urea Nitrogen 26 mg/dl (7-17); Calcium 7.4 mg/dl (8.4-10.2); Carbon Dioxide 26 mmol/L (22-30); Chloride 111 mmol/L (98-107); Estimated Creatinine Clearance 38 ml/min; Glucose 97 mg/dl (70-99); Potassium 4.2 mmol/L (3.5-5.1); Sodium 138 mmol/L (135-145); Total Protein 5.4 g/dl (6.3-8.2); eGFR 54.87
[2025-06-06] MEDS: COREG PO (11:45)
[2025-06-06] MEDS: PACERONE PO (11:46)
[2025-06-06] MEDS: TYLENOL 650 MG PO (12:44)
[2025-06-06] MEDS: LANOXIN 125 MCG PO (12:44)
--- NOTE | 2025-06-06 12:59 | PHA.VAN.FU ---
Vancomycin Assessment / Plan
- Assessment
Renal Function: SCR Decreasing
WBC's are: WNL
In the past 24 hrs, patient has been: Afebrile
Concomitant Antimicrobials: Cefepime
- Assessment - Therapeutic Drug Monitoring
Random Level: 13.5 - drawn ~22.5H after divided 2g load
- Dosing Plan
Dosing by Level: Re-dose today (Vanc 1000mg)
- Monitoring Plan
Random Level: 06/07 0600
- Follow Up
Pharmacy will continue to follow.
Vancomycin Follow UP
- -
Patient Age: 84
Patient Sex: Female
Vancomycin Day #: 2
Indication: Pulmonary/Respiratory
Requesting Provider: Ang Arellano
Pertinent Antimicrobial Allergies:
penicillins - unknown
cephalosporins - unknown
Height / Weight:
Height 5 ft 6 in
Actual Weight 75.551 kg
Pertinent Past Medical History: COVID
- Vital Signs / Lab Results
Temp Pulse Resp BP Pulse Ox
97.7 F 61 21 97/45 96
06/06/25 11:05 06/06/25 12:44 06/06/25 12:03 06/06/25 12:03 06/06/25 12:19
Lab Results - Hematology
06/04/25 06/05/25 06/05/25
17:36 01:30 01:31
WBC 11.3 H 9.0 Cancelled
06/06/25
10:46
WBC 10.3
Lab Results - Chemistry
06/04/25 06/05/25 06/06/25
17:36 01:31 10:46
BUN 31 H 31 H 26 H
Creatinine 1.3 H 1.1 H 1.0
Estimated Creat Clear 34 38
Albumin 2.3 L 2.1 L 1.9 L
Microbiology Results
06/05/25 01:44 Nasal Screen MRSA (PCR) - Final
Nose Staph aureus MRSA
06/05/25 01:41 Influenza Types A & B (GEOFF) - Final
Nasal Swab Negative for Influenza A & B, NAAT
Negative results must be combined with clinical observations
and patient history.
Nucleic Acid Amplification test (NAAT)performed on the
[employer] platform.
Therapeutic Drug Monitoring
Random Vancomycin 13.5 ug/ml 06/06/25 10:46
--- NOTE | 2025-06-06 13:44 | CON.PUL ---
Addendum entered and electronically signed by Sebas Posada MD 06/07/25 10:06:
Patient seen and evaluated on 06/06/2025
Original Note:
Consultation
Consultation Request
Date/Time Consultation Requested: 06/06/2025933
Date/Time Consultation Performed: 06/06/2025 - 1145
Requesting Provider: Dr. Hussein
Performing Provider: Dr. Posada
Reason for Consultation: Pneumonia/Hypoxia
Medical History
-
Chief Complaint: Altered mental status + low oxygen levels
History of Present Illness:
84-year-old female with a past medical history of hypertension, osteoarthritis, PMR, fibrocystic disease of breast, atrial fibrillation on Eliquis + amiodarone + dyslipidemia who presented with altered mental status, hypoxia and generalized
weakness. She had been admitted recently at [facility] for COVID-19 infection and was discharged to rehab. From there she went to an assisted living facility. Given her development of lower extremity edema and shortness of breath, with
saturations remaining <90% on her baseline 4 L/min, she was sent in for evaluation from her [facility] assisted living. The nurse at [facility] also said that the patient has had multiple falls recently with increased confusion. The
patient was released from the prison facility on 05/31. In the ER she was afebrile with normal pulse rate, breathing at 18 breaths/min, BP 108/51 and saturating 96% on 6 L/min. CXR shows multifocal opacities concerning for pneumonia. Of
note, patient's prior CT chest in December 2012 showed mild linear scarring in the lingula + posterior right upper lobe with otherwise small 2-3 mm nodule in the right upper lobe and no evidence of emphysema or pleural effusion, and subsegmental
atelectasis in the bases. Labs significant for mild leukocytosis to 11.3, Hb 11, absolute eosinophils 100, creatinine 1.3, proBNP 7570, mild transaminitis, serum albumin level 2.3, and COVID-19 antigen negative. In the ER patient was given Lasix
20 mg + potassium. She was initially admitted to Telemetry, however given worsening oxygen requirements, she was transferred to the IMU on 06/05 and was placed from midflow NC at 10L/min onto high-flow NC. She remains on midflow nasal cannula at
10L/min with SpO2 96%. Pulmonary service now consulted for additional management/recommendations.
PMHx: Atrial fibrillation on amiodarone + Eliquis, hypertension, osteoarthritis, polymyalgia rheumatica, fibrocystic disease of the breast, dyslipidemia, chronic hypoxic respiratory failure on home oxygen
PSHx: Hx of TAVR, knee arthroscopy, tonsillectomy
Past Medical History
Past Medical History: Other (Above as per HPI)
Past Surgical History: Other (Above as per HPI)
Social History
Tobacco: Non-smoker
Alcohol: None
Drug: None
Living: Assisted Living
Family History
Family History: Reviewed & Not Pertinent
Allergies / Home Medications
Allergies
Allergy/AdvReac Type Severity Reaction Status Date / Time
Cephalosporins Allergy Unknown Verified 06/04/25 21:40
ibuprofen Allergy Unknown Verified 06/04/25 21:40
NSAIDS (Non-Steroidal Allergy Unknown Verified 06/04/25 21:40
Anti-Inflamma
penicillin G Allergy Unknown Verified 06/04/25 21:40
Penicillins Allergy Unknown Verified 06/04/25 21:40
Home Medications
�Medication �Instructions �Recorded �Confirmed �Last Taken �Type
potassium chloride 20 mEq 20 meq PO DAILY Electrolyte 08/25/12 06/04/25 Unknown History
tablet,extended release Repletion
acetaminophen 325 mg tablet 650 mg PO Q6HPRN PRN mild pain 06/04/25 06/04/25 Unknown History
(Tylenol)
albuterol sulfate 90 mcg/actuation 2 puff inhalation R Q8HPRN PRN sob 06/04/25 06/04/25 Unknown History
aerosol inhaler
amiodarone 200 mg tablet 200 mg PO BID Arrhythmia 06/04/25 06/04/25 Unknown History
apixaban 5 mg tablet (Eliquis) 5 mg PO BID Blood Clot 06/04/25 06/04/25 Unknown History
Prevention/Tx
atorvastatin 20 mg tablet (Lipitor) 20 mg PO HS High Cholesterol 06/04/25 06/04/25 Unknown History
brimonidine 0.2 % eye drops 1 drp LEFT EYE BID Eye Condition 06/04/25 06/04/25 Unknown History
carvedilol 3.125 mg tablet (Coreg) 3.125 mg PO BID Heart Failure 06/04/25 06/04/25 Unknown History
cholecalciferol (vitamin D3) 50 50 mcg PO DAILY Supplement 06/04/25 06/04/25 Unknown History
mcg (2,000 unit) tablet (Vitamin
D3)
cyanocobalamin (vitamin B-12) 1,000 mcg PO DAILY Supplement 06/04/25 06/04/25 Unknown History
1,000 mcg tablet
dapagliflozin propanediol 10 mg 10 mg PO DAILY Heart Failure 06/04/25 06/04/25 Unknown History
tablet (Farxiga)
digoxin 125 mcg (0.125 mg) tablet 125 mcg PO DAILY Heart Failure 06/04/25 06/04/25 Unknown History
dorzolamide 2 % eye drops 1 drp LEFT EYE BID Eye Condition 06/04/25 06/04/25 Unknown History
escitalopram oxalate 5 mg tablet 15 mg PO DAILY Depression 06/04/25 06/04/25 Unknown History
(Lexapro)
ferrous sulfate 325 mg (65 mg 325 mg PO DAILY Supplement 06/04/25 06/04/25 Unknown History
iron) tablet
fexofenadine 60 mg tablet 60 mg PO HS Allergies 06/04/25 06/04/25 Unknown History
fluticasone 250 mcg-salmeterol 50 1 inh inhalation R BID 06/04/25 06/04/25 Unknown History
mcg/dose blistr powdr for Lung/Breathing Issues
inhalation (Advair Diskus)
furosemide 20 mg tablet (Lasix) 20 mg PO DAILY Fluid 06/04/25 06/04/25 Unknown History
Retention/Swelling
ipratropium 0.5 mg-albuterol 3 mg 3 ml inhalation R QID 06/04/25 06/04/25 Unknown History
(2.5 mg base)/3 mL nebulization Lung/Breathing Issues
soln
latanoprost 0.005 % eye drops 1 drp LEFT EYE HS Eye Condition 06/04/25 06/04/25 Unknown History
levothyroxine 75 mcg tablet 75 mcg PO DAILY Thyroid 06/04/25 06/04/25 Unknown History
(Synthroid)
lorazepam 0.5 mg tablet 0.5 mg PO DAILYPRN PRN anxiety 06/04/25 06/04/25 Unknown History
melatonin 5 mg tablet 5 mg PO HS Sleep 06/04/25 06/04/25 Unknown History
oxybutynin chloride 15 mg 15 mg PO DAILY Urinary Issue 06/04/25 06/04/25 Unknown History
tablet,extended release 24 hr
sennosides 8.6 mg tablet (senna) 8.6 mg PO DAILYPRN PRN constipation 06/04/25 06/04/25 Unknown History
Review of Systems
-
History Source: Patient
All other systems: Negative unless noted
Vitals / Labs / Diagnostic Testing
Vital Signs
Temp Pulse Resp BP Pulse Ox
97.7 F 60 17 84/55 96
06/06/25 11:05 06/06/25 10:13 06/06/25 08:10 06/06/25 10:13 06/06/25 08:10
Microbiology
06/05/25 01:44 Nose Nasal Screen MRSA (PCR) - Final
Staph aureus MRSA
06/05/25 01:41 Nasal Swab Influenza Types A & B (GEOFF) - Final
Negative for Influenza A & B, NAAT
Negative results must be combined with clinical observations
and patient history.
Nucleic Acid Amplification test (NAAT)performed on the
[employer] platform.
Diagnostic Testing:
Physical Exam
-
HEENT: Normocephalic and Anicteric
Cardiovascular: S1/S2 and Peripheral Edema (+2 LE pitting edema b/l)
Respiratory: Wheeze (negative), Rales (bilateral), Rhonchi (negative), Non-Labored Respirations (negative) and Other (Poor inspiratory effort)
GI: Soft, Non Distended, Non Tender and Normal Bowel Sounds
Neurology: Awake, Alert, Oriented and Tremors (negative)
Skin: Warm and Dry
General: Respiratory Distress (negative), Comfortable, Fever (negative) and Chills (negative)
Assessment
-
Assessment: 84-year-old female with a past medical history of hypertension, osteoarthritis, PMR, fibrocystic disease of breast, atrial fibrillation on Eliquis + amiodarone + dyslipidemia who presented with altered mental status, hypoxia and
generalized weakness. She had been admitted recently at [facility] for COVID-19 infection and was discharged to rehab. From there she went to an assisted living facility. Given her development of lower extremity edema and shortness of breath,
with saturations remaining <90% on her baseline 4 L/min, she was sent in for evaluation from her [facility] assisted living. The nurse at [facility] also said that the patient has had multiple falls recently with increased confusion.
The patient was released from the prison facility on 05/31. In the ER she was afebrile with normal pulse rate, breathing at 18 breaths/min, BP 108/51 and saturating 96% on 6 L/min. CXR shows multifocal opacities concerning for pneumonia.
Of note, patient's prior CT chest in December 2012 showed mild linear scarring in the lingula + posterior right upper lobe with otherwise small 2-3 mm nodule in the right upper lobe and no evidence of emphysema or pleural effusion, and subsegmental
atelectasis in the bases. Labs significant for mild leukocytosis to 11.3, Hb 11, absolute eosinophils 100, creatinine 1.3, proBNP 7570, mild transaminitis, serum albumin level 2.3, and COVID-19 antigen negative. In the ER patient was given Lasix
20 mg + potassium. She was initially admitted to Telemetry, however given worsening oxygen requirements, she was transferred to the IMU on 06/05 and was placed from midflow NC at 10L/min onto high-flow NC. She remains on midflow nasal cannula at
10L/min with SpO2 96%. Pulmonary service now consulted for additional management/recommendations.
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
Impression:
#Multifocal pneumonia/HAP - hospitalized at [facility] in April 2025
#Recent COVID-19 infection (April 2025 - hospitalized at [facility])
#Increased aspiration risk (via Barium swallow with video + speech study - 05/11/2025 at OSH)
#Hx of bilateral pleural effusions (seen on OSH CT Chest from 05/11/2025)
#Chronic HFpEF with acute exacerbation
#Acute hypoxic respiratory failure due to above
#8x7mm left upper lobe nodule (seen on CT Chest - 05/11/2025 at OSH)
#Anemia (unknown baseline)
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
#Physical deconditioning
#KATIE (unknown baseline)
#Transaminitis
#Hypoalbuminemia
#Positive MRSA screen
#Former tobacco smoker (heavy smoker up until age 63, then restarted smoking again at at 78 until 83)
Plan:
- Given patient's multifocal pneumonia, continue with broad-spectrum antibiotics with MRSA coverage to currently on cefepime + IV vancomycin
- She was recently hospitalized x 1 week at [place] in March for pneumonia, and was readmitted in April for COVID-19 after not being able to get out of bed x [address] Chest on 05/11/2025 showed bilateral pleural effusions with bilateral upper
lobe subpleural patchy airspace consolidations
- I was unable to view prior imaging, hence we should assume that she has a new infectious process and plan for at least 7 days antibiotics, assuming she continues to clinically improve and remains afebrile for 48 hours prior to stopping antibiotics
- Barium swallow via [employer] on 05/11/2025 showed aspiration with thin liquids with marked tertiary contractions of the esophagus in keeping with severe esophageal dysmotility with air distension of the esophagus proximally --> would recommend GI
consult as this could be large contributor to her aspiration and recurrent PNA
- Aspiration precautions; keep HOB >30-45�
- Mucolytics
- Maintain SpO2 >90-94% with supplemental O2 as needed
- Continue Advair 115mcg (home med) + prn nebulized bronchodilators - not currently bronchospastic
- Given her significant tobacco smoking Hx, recommend outpatient PFTs
- Given her A-fib and elevated proBNP with suspected component of acute HFpEF, cardiology consulted
- Recommend to diurese as tolerated; trend BNP
- Trend UOP, sCr and strict I/O
- Continue amio and dig
- Recommend continued outpatient follow up for left upper lobe nodule, measuring 8x7mm, seen on CT Chest from 05/11/2025 at OSH
- I will arrange for office follow up with our office
- Incentive spirometer encouraged q1hr while awake
- I believe a large component to her rales heard on exam is due to hypoventilation with significant deconditioning, [place] with multiple hospitalizations over last few months, although there also appears to be a component of CHF; she currently denies
orthopnea
- Replete electrolytes with K>4, Mg>2
- Trend H/H and transfuse if needed to keep Hb>7g/dL; keep plt>20k, unless there is concern for bleeding then keep plt>50k
- Maintain euglycemia with goal BG >100 and <180
- DVT ppx: Eliquis (home med)
Pulmonary service will continue to follow along.
Data:
CXR 06/04/2025: There are bilateral patchy airspace opacities which likely represent multifocal pneumonia.
Total time spent today was 58 minutes for this encounter. Time includes reviewing laboratory test/imaging results, reviewing pertinent medical records, obtaining and reviewing medical history, performing an appropriate exam, ordering medications,
tests and procedures. Time also includes documentation of this encounter, coordinating patient care and communicating with other healthcare professionals. Total time does not include separately billed tests performed on this date of service.
--- NOTE | 2025-06-06 14:20 | W.PN.HOSP.TC ---
Today's Communication/Plan
-
see bold
Assessment / Plan
Assessment / Plan
HPI: 84-year-old female was recently in [place] for COVID then rehab presented to the hospital complaining of generalized weakness, subjective fever and chill and x-ray showed bilateral infiltration concerning for pneumonia more than CHF as she
looks extremely dry and dehydrated, while CHF could be a possibility but unlikely.
#Acute on chronic hypoxic respiratory failure
Currently requiring 10 L of oxygen, wean as tolerated. She wears 2 L at baseline
Due to both CHF and pneumonia, treat as below
#Healthcare acquired pneumonia and post COVID
COVID/influenza negative, requested strep/Legionella antigens. +MRSA by nasal PCR
Continue vancomycin and cefepime, Mucinex, bronchodilators
Consult pulmonology, consider chest CT, trend fever and white count
#Acute heart failure with a preserved ejection fraction
Appreciate cardiology input, started on Lasix 40 mg IV daily
Records requested from [place]'s
Trend creatinine, trend daily weights
#Soft blood pressure
Midodrine as needed SBP less than 90 or MAP less than 65
#Weakness
PT/OT recommend skilled rehab
#Paroxysmal atrial fibrillation
AV dual paced
Continue Coreg, digoxin, amiodarone, Eliquis
#Prolonged QTc
Avoid Zofran and other QTc prolonging agents
#Hyperlipidemia
Continue statin
#Hypothyroidism
Continue levothyroxine
#Cigarette nicotine dependency
Encourage cessation, order nicotine patch as needed
DVT prophylaxis�Eliquis
Full code
Updated daughter at bedside 06/06
Total time spent to see the patient on the floor, examine the patient, review data and lab results, discuss treatment plan with patient, nursing staff around 53 minutes.
Physical Exam
General: Appears to not feel well, no acute distress
HEENT: Normocephalic, Atraumatic, EOMI, MMM
Respiratory: Bibasilar crackles
Cardiac: Normal S1/S2, Regular Rate and Rhythm, +JVD
GI: Soft, Nontender, Nondistended, Normal Bowel Sounds
Extremities: No Clubbing, Cyanosis
Bilateral lower extremity edema noted
Neuro: Nonfocal/Grossly Intact
Anticipated Discharge: > 48 hours
Subjective/Interval History
-
Date of Service: June 06, 2025
Patient denies shortness of breath. She denies coughing. No chest pain. No fever, no vomiting.
Objective Data
-
Labs:
Laboratory Results
06/06/25
10:46
WBC 10.3
Hgb 10.7 L
Hct 32.1 L
Plt Count
Sodium 138
Potassium 4.2
Chloride 111 H
Carbon Dioxide 26
BUN 26 H
Creatinine 1.0
Glucose 97
Calcium 7.4 L
Total Bilirubin 0.9
AST 67 H
ALT 65 H
Alkaline Phosphatase 94
Vital Signs:
Vital Signs
Temp Pulse Resp BP Pulse Ox
97.7 F 61 21 97/45 96
06/06/25 11:05 06/06/25 12:44 06/06/25 12:03 06/06/25 12:03 06/06/25 12:19
I&O
06/05/25 06/06/25 06/07/25
06:59 06:59 06:59
Intake Total 1380 / 1380 540 / 540
Output Total 100 / 100
Balance 1380 / 1380 440 / 440
[2025-06-06] MEDS: VANCOCIN 200 IV (14:48)
--- NOTE | 2025-06-06 15:10 | CON.CAR ---
Consultation
Consultation Request
Date/Time Consultation Requested: 06/06/25
Date/Time Consultation Performed: 06/06/25
Requesting Provider: Dr. Hussein
Performing Provider: Dr. Howell
Reason for Consultation: Shortness of breath, concern for heart failure
Medical History
-
Chief Complaint: Shortness of breath, fatigue
History of Present Illness:
I had the pleasure to meet Ana Maria Justice in [id number] along with her daughter Jen. Rodgers is a resident of [facility] in [place] and has a past medical history of hypertension, PAF, tobacco dependence and probable COPD, severe aortic
stenosis status post TAVR [they believe this occurred at [place] in 2019 ] and sick sinus syndrome status post pacemaker [2021]. 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 Js Ornelas with [facility] cardiology [[phone]]; she gets most of her care at [facility].
.
She has had several admissions to [facility] in the last few months. On April 13 she was admitted to [facility] with pneumonia and stayed approximately 1 week. She was reportedly seen by cardiology during this hospitalization.
Limited study results from patient's portal were reviewed. They did an echocardiogram 04/18/2025 which reported an EF of 62% with no regional wall motion abnormality with normal RV size and systolic function and right-sided pacemaker present. Her
TAVR was functioning normally with mean trans aortic gradient 10 mmHg no aortic regurgitation. 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 Her carotid duplex showed carotid atherosclerosis with less
than 50% stenosis bilaterally. Lab work with highly sensitive troponin not elevated, BNP 428. BUN/creatinine 19/0.78. Sodium 137, potassium 3.7. Hemoglobin 12.7, platelets 244,000. She was just discharged to a senior care facility and
return to her assisted living in April. Apparently she was unable to get out of bed for 4 days after being released and was readmitted to [facility] with COVID. Records from this hospitalization not available for review beyond
lab work: Lab work from 05/14/2025 hemoglobin 12.2, WBC 13.6, platelets 211. BUN and creatinine 39/1.02. Sodium 136, potassium 4. Per daughter she was discharged back to senior care where she stayed for 2 weeks. She returned home on Saturday
however has been very weak and unable to ambulate. She also fell at senior care facility prior to discharge. She did have an appointment with her freight service inspector on June 04 however missed this appointment. Daughter and patient have noted
increasing lower extremity edema which is new, shortness of breath and generalized weakness. Daughter requested patient come to [facility] instead of [facility].
.
In the ER patient was found to be hypoxic with chest x-ray concerning for bilateral infiltration pneumonia. COVID/influenza negative. Cardiology consulted for concern of heart failure. Pertinent lab work: Hemoglobin 10.7, WBC 10.3. Platelets
yesterday 232. Sodium 138, potassium 4.2, BUN/creatinine initially 31/1.1 and today 26/1. AST/ALT 55/57 yesterday and today 67/65. Troponin less than 0.012. proBNP 7570
Past medical history: Hypertension, osteoarthritis, polymyalgia rheumatica, osteopenia, A-fib, aortic stenosis status post TAVR, dyslipidemia, tobacco dependence, probable COPD, ambulatory dysfunction. Recent COVID. Recent pneumonia.
Past Medical History
Past Medical History: Other (See HPI)
Past Surgical History: Other (See HPI)
Social History
Tobacco: Smoker ('Heavy' smoker up into her 70s and then stopped. Then restarted in her 80s quitting 2 months ago. Daughter states tobacco use 'heavy ')
Alcohol: None
Drug: None
Living: Assisted Living
Employment: Retired
Family History
Family History: Reviewed & Not Pertinent
Allergies / Home Medications
Allergy/AdvReac Type Severity Reaction Status Date / Time
Cephalosporins Allergy Unknown Verified 06/04/25 21:40
ibuprofen Allergy Unknown Verified 06/04/25 21:40
NSAIDS (Non-Steroidal Allergy Unknown Verified 06/04/25 21:40
Anti-Inflamma
penicillin G Allergy Unknown Verified 06/04/25 21:40
Penicillins Allergy Unknown Verified 06/04/25 21:40
�Medication �Instructions �Recorded �Confirmed �Type
potassium chloride 20 mEq 20 meq PO DAILY Electrolyte 08/25/12 06/04/25 History
tablet,extended release Repletion
acetaminophen 325 mg tablet 650 mg PO Q6HPRN PRN mild pain 06/04/25 06/04/25 History
(Tylenol)
albuterol sulfate 90 mcg/actuation 2 puff inhalation R Q8HPRN PRN sob 06/04/25 06/04/25 History
aerosol inhaler
amiodarone 200 mg tablet 200 mg PO BID Arrhythmia 06/04/25 06/04/25 History
apixaban 5 mg tablet (Eliquis) 5 mg PO BID Blood Clot 06/04/25 06/04/25 History
Prevention/Tx
atorvastatin 20 mg tablet (Lipitor) 20 mg PO HS High Cholesterol 06/04/25 06/04/25 History
brimonidine 0.2 % eye drops 1 drp LEFT EYE BID Eye Condition 06/04/25 06/04/25 History
carvedilol 3.125 mg tablet (Coreg) 3.125 mg PO BID Heart Failure 06/04/25 06/04/25 History
cholecalciferol (vitamin D3) 50 50 mcg PO DAILY Supplement 06/04/25 06/04/25 History
mcg (2,000 unit) tablet (Vitamin
D3)
cyanocobalamin (vitamin B-12) 1,000 mcg PO DAILY Supplement 06/04/25 06/04/25 History
1,000 mcg tablet
dapagliflozin propanediol 10 mg 10 mg PO DAILY Heart Failure 06/04/25 06/04/25 History
tablet (Farxiga)
digoxin 125 mcg (0.125 mg) tablet 125 mcg PO DAILY Heart Failure 06/04/25 06/04/25 History
dorzolamide 2 % eye drops 1 drp LEFT EYE BID Eye Condition 06/04/25 06/04/25 History
escitalopram oxalate 5 mg tablet 15 mg PO DAILY Depression 06/04/25 06/04/25 History
(Lexapro)
ferrous sulfate 325 mg (65 mg 325 mg PO DAILY Supplement 06/04/25 06/04/25 History
iron) tablet
fexofenadine 60 mg tablet 60 mg PO HS Allergies 06/04/25 06/04/25 History
fluticasone 250 mcg-salmeterol 50 1 inh inhalation R BID 06/04/25 06/04/25 History
mcg/dose blistr powdr for Lung/Breathing Issues
inhalation (Advair Diskus)
furosemide 20 mg tablet (Lasix) 20 mg PO DAILY Fluid 06/04/25 06/04/25 History
Retention/Swelling
ipratropium 0.5 mg-albuterol 3 mg 3 ml inhalation R QID 06/04/25 06/04/25 History
(2.5 mg base)/3 mL nebulization Lung/Breathing Issues
soln
latanoprost 0.005 % eye drops 1 drp LEFT EYE HS Eye Condition 06/04/25 06/04/25 History
levothyroxine 75 mcg tablet 75 mcg PO DAILY Thyroid 06/04/25 06/04/25 History
(Synthroid)
lorazepam 0.5 mg tablet 0.5 mg PO DAILYPRN PRN anxiety 06/04/25 06/04/25 History
melatonin 5 mg tablet 5 mg PO HS Sleep 06/04/25 06/04/25 History
oxybutynin chloride 15 mg 15 mg PO DAILY Urinary Issue 06/04/25 06/04/25 History
tablet,extended release 24 hr
sennosides 8.6 mg tablet (senna) 8.6 mg PO DAILYPRN PRN constipation 06/04/25 06/04/25 History
Review of Systems
-
History Source: Patient and Family
All other systems: Negative unless noted
Constitutional: Fatigue
EENT: No Symptoms
Respiratory: Trouble Breathing
Cardiac: No Symptoms
Abdomen/GI: No Symptoms
: No Symptoms
Musculoskeletal: Joint Pain and Edema
Neurological: Weakness
Endocrine: No Symptoms
Hematologic/Lymphatic: No Symptoms
Physical Exam
Vital Signs
Temp Pulse Resp BP Pulse Ox
97.7 F 62 13 108/88 94
06/06/25 11:05 06/06/25 15:00 06/06/25 15:00 06/06/25 15:00 06/06/25 15:00
Lab Results
06/06/25 10:46
06/06/25 10:46
Troponin I < 0.012 ng/ml 06/05/25 01:31
Cem-O-Wjqpsnmgwdj Pept 7570 pg/ml 06/04/25 17:36
Physical Exam
General: Other (Eating without conversational dyspnea. Awake alert and oriented on mid flow nasal cannula O2 at 2 L/min)
HEENT: Normocephalic, Anicteric and Moist Mucous Membranes
Respiratory: Other (Decreased breath sounds throughout with scattered rhonchi and fine bibasilar crackles)
Cardiac: Other (Regular. Positive S1-S2. No murmurs.AV paced on telemetry)
GI: Soft, Non Tender, Non Distended and Normal Bowel Sounds
Musculoskeletal: Edema (+trace lower extremity edema)
Neuro: AO x 3
Psych: Calm
Impression / Plan
-
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 Js Ornelas with [facility] cardiology [[phone]]
Impression:
Hypoxic shortness of breath with 2 recent hospitalizations for pneumonia at [facility] in both March and April; COVID-positive in April.
- Chest x-ray with bilateral infiltrates suggestive of multifocal pneumonia
- proBNP elevated, 7570 concerning for component of heart failure with preserved ejection fraction
- Probable underlying COPD given heavy tobacco dependence. Patient has been advised pulmonary evaluation not yet completed.
Hypertension
PAF currently AV paced
History of aortic stenosis status post TAVR, details unclear believe occurred at [place] in 2019
[employer] pacemaker believed to be implanted in 2021
Eliquis anticoagulation
Patient on both amiodarone and digoxin at time of admission
Osteoarthritis
Polymyalgia rheumatica
Tobacco dependence
Plan:
Multifactorial hypoxic shortness of breath.
- Pneumonia
-chest x-ray concerning for multifocal pneumonia with 2 hospitalizations at outside hospital for pneumonia in March and April; COVID-positive during April admission.
- O2 supplementation
- Would consider CT imaging of the chest if not recently done at [facility].
- Strongly consider pulmonary consult
- Heart failure with preserved ejection fraction
- Elevated proBNP 7570
- Continue IV Lasix.
- Will obtain cardiology testing and records from her freight service inspector at [facility] cardiology as well as recent hospitalizations at [facility]. She did have an echocardiogram that I reviewed on the portal from April 18, 2025 with normal LV size
and systolic function and normally functioning TAVR with mild mitral stenosis. Consider repeat echocardiogram
-Troponin undetectable with no known coronary artery disease
History of PAF currently AV paced with a [employer] pacemaker placed in 2021
- She is on both amiodarone and digoxin.
- Will hold digoxin and reduce amiodarone to once daily
-Check digoxin level
- Check TSH
- Will have pacemaker interrogated tomorrow
Data Reviewed
-
EKG: Tracing Personally Visualized and interpreted
Radiology: Report Reviewed by me
Medical Tests (Nuc Med, Echo etc): Report Reviewed by me
Labs: Labs Reviewed by me
--- NOTE | 2025-06-06 15:47 | PTCARENOTE ---
Patient had an episode of dizziness and hypotension this morning as she transferred from bed to chair. Blood pressure dropped to 84/[address] rate [address] Hussein. Morning dose of Coreg and AMiodarone held as per parameters. Midodrine 5mg
administered. Patients blood pressure has improved and she is now sitting in chair, denying dizziness. Oxygen has been weaned to 2 liters via nasal cannula pulse ox 94%.
[2025-06-06] MEDS: COREG 3.125 MG PO (20:00)
[2025-06-06] MEDS: MELATONIN 10 MG PO (21:36)
[2025-06-06] MEDS: CLARITIN 10 MG PO (21:36)
[2025-06-06] MEDS: LIPITOR 20 MG PO (21:36)
[2025-06-06] MEDS: XALATAN OPHTHALMIC SOLUTION 1 DROP LEFT EYE (21:36)
[2025-06-06] MEDS: ATIVAN 0.5 MG PO (23:02)
[2025-06-07] VITALS (25 sets, daily range): BP systolic 85–126; BP diastolic 40–89; BMI 27.3
[2025-06-07] MEDS: SYNTHROID 75 MCG PO (05:35)
[2025-06-07 05:45] LABS: Hematocrit 32.6 % (37.0-47.0); Hemoglobin 10.2 g/dL (12.0-16.0); Mean Corp Hgb Conc. 31.3 g/dL (33.0-37.0); Mean Corpuscular Volume 90.1 fL (81.0-99.0); Platelet Count 170 10^3/uL (130-400); Red Cell Dist. Width 18.6 % (11.5-14.5)
[2025-06-07 06:12] LABS: ALT (SGPT) 63 U/L (0-35); AST (SGOT) 56 U/L (14-36); Albumin 1.8 g/dl (3.5-5.0); Alkaline Phosphatase 85 U/L (38-126); Blood Urea Nitrogen 28 mg/dl (7-17); Calcium 8.0 mg/dl (8.4-10.2); Carbon Dioxide 27 mmol/L (22-30); Chloride 110 mmol/L (98-107); Digoxin 1.9 ng/ml (0.8-2.0); Estimated Creatinine Clearance 38 ml/min; Glucose 101 mg/dl (70-99); Potassium 4.2 mmol/L (3.5-5.1); Sodium 138 mmol/L (135-145); Total Protein 5.1 g/dl (6.3-8.2); eGFR 54.87
[2025-06-07] MEDS: ADVAIR HFA 115/21 MCG INHALER 2 PUFF INH ×2 (07:48→19:55)
[2025-06-07] MEDS: DUONEB 3 ML INH (07:55)
--- NOTE | 2025-06-07 08:37 | PHA.VAN.FU ---
Vancomycin Assessment / Plan
- Assessment
Renal Function: Stable
WBC's are: WNL
In the past 24 hrs, patient has been: Afebrile
Concomitant Antimicrobials: cefepime
- Assessment - Therapeutic Drug Monitoring
Random Level: 17.6 - drawn ~14H after previous dose of 1g
- Dosing Plan
Dosing by Level: Re-dose today (Vanc 750mg)
Reducing dose today, level also shorter interval from prior dose yesterday
If level does not appropriately decrease, may consider prolonging dosing interval
- Monitoring Plan
Random Level: 06/08 0600
- Follow Up
Pharmacy will continue to follow.
Vancomycin Follow UP
- -
Patient Age: 84
Patient Sex: Female
Vancomycin Day #: 3
Indication: Pulmonary/Respiratory
Requesting Provider: Ang Arellano
Pertinent Antimicrobial Allergies:
penicillins - unknown
cephalosporins - unknown
Height / Weight:
Height 5 ft 6 in
Actual Weight 75.551 kg
Pertinent Past Medical History: COVID
- Vital Signs / Lab Results
Temp Pulse Resp BP Pulse Ox
98.0 F 60 28 115/53 91
06/07/25 03:00 06/07/25 07:58 06/07/25 07:58 06/07/25 03:25 06/07/25 07:58
Lab Results - Hematology
06/04/25 06/05/25 06/05/25
17:36 01:30 01:31
WBC 11.3 H 9.0 Cancelled
06/06/25 06/07/25
10:46 05:04
WBC 10.3 9.8
Lab Results - Chemistry
06/04/25 06/05/25 06/06/25
17:36 01:31 10:46
BUN 31 H 31 H 26 H
Creatinine 1.3 H 1.1 H 1.0
Estimated Creat Clear 34 38
Albumin 2.3 L 2.1 L 1.9 L
06/07/25
05:04
BUN 28 H
Creatinine 1.0
Estimated Creat Clear 38
Albumin 1.8 L
Microbiology Results
06/05/25 01:44 Nasal Screen MRSA (PCR) - Final
Nose Staph aureus MRSA
Therapeutic Drug Monitoring
Random Vancomycin 17.6 ug/ml 06/07/25 05:04
--- NOTE | 2025-06-07 09:11 | W.PN.PUL3 ---
Today's Communication / Plan
-
Remains on o2, likely with underlying undiagnosed lung disease--wean as tolerated
Eventual home O2 eval
CT chest pending
Obtain baseline PFT in AM
ProBNP elevated, agree with ECHO--on lasix IV
PCT negative, can likely stop abx
Assessment
-
84-year-old female with a past medical history of hypertension, osteoarthritis, PMR, fibrocystic disease of breast, atrial fibrillation on Eliquis + amiodarone + dyslipidemia who presented with altered mental status, hypoxia and generalized
weakness. She had been admitted recently at [facility] for COVID-19 infection and was discharged to rehab. From there she went to an assisted living facility. Given her development of lower extremity edema and shortness of breath, with
saturations remaining <90% on her baseline 4 L/min, she was sent in for evaluation from her [facility] assisted living. The nurse at [facility] also said that the patient has had multiple falls recently with increased confusion. The
patient was released from the halfway facility on 05/31. In the ER she was afebrile with normal pulse rate, breathing at 18 breaths/min, BP 108/51 and saturating 96% on 6 L/min. CXR shows multifocal opacities concerning for pneumonia. Of
note, patient's prior CT chest in December 2012 showed mild linear scarring in the lingula + posterior right upper lobe with otherwise small 2-3 mm nodule in the right upper lobe and no evidence of emphysema or pleural effusion, and subsegmental
atelectasis in the bases. Labs significant for mild leukocytosis to 11.3, Hb 11, absolute eosinophils 100, creatinine 1.3, proBNP 7570, mild transaminitis, serum albumin level 2.3, and COVID-19 antigen negative. In the ER patient was given Lasix
20 mg + potassium. She was initially admitted to Telemetry, however given worsening oxygen requirements, she was transferred to the IMU on 06/05 and was placed from midflow NC at 10L/min onto high-flow NC. She remains on midflow nasal cannula at
10L/min with SpO2 96%. Pulmonary service now consulted for additional management/recommendations.
Impression:
Recent multifocal pneumonia/HAP - hospitalized at outside hospital in April 2025
Acute hypoxic respiratory failure
Acute CHF, proBNP 7570
Anemia (unknown baseline)
KATIE (unknown baseline)
Transaminitis
Hypoalbuminemia
Positive MRSA screen
Chronic conditions [employer] MECH[employer]IC [employer]:
Atrial fibrillation on amiodarone + Eliquis
Chronic hypoxic respiratory failure on home oxygen, 4L
Hypertension
Osteoarthritis
Polymyalgia rheumatica
Giant cell arteritis (2005)
Fibrocystic disease of the breast
Dyslipidemia
Depression
Chronic ETOH abuse s/p fall, laceration to head, ER 2011
Pulmonary nodules on 2013 CT CHEST
Plan:
Notable 92% on 8L NC
She has reported history of 4L O2 following last discharge but does not normally use O2 at baseline
She has never been told she has COPD but was a former smoker, 30 PYS quit about 10 years ago
Never saw Pulmonary as OP
Empirically started on broad-spectrum antibiotics with MRSA coverage to currently on cefepime + IV vancomycin
PCT negative, consider stopping antibiotics
Aspiration precautions; keep HOB >30-45�
Mucolytics
Maintain SpO2 >90-94% with supplemental O2 as needed
CT chest pending
Continue Advair 115mcg (home med) + prn nebulized bronchodilators - not currently bronchospastic
Incentive spirometer encouraged q1hr while awake
Can obtain baseline PFT while inpatient
proBNP 7570
Agree with ECHO, pending as well
Recommend diuresis per team
- Replete electrolytes with K>4, Mg>2
- Trend H/H and transfuse if needed to keep Hb>7g/dL; keep plt>20k, unless there is concern for bleeding then keep plt>50k
- Maintain euglycemia with goal BG >100 and <180
- DVT ppx: Eliquis (home med)
Pulmonary service will continue to follow along.
Data:
CXR 06/04/2025: There are bilateral patchy airspace opacities which likely represent multifocal pneumonia.
CT chest 2012: No acute disease of the chest. Three stable small nodular right upper lobe and right middle lobe suspected nodules as described above. A repeat study in approximately 6-12 months is suggested unless indicated otherwise clinically.
Too small to characterize hypodense renal lesion likely benign cyst.
Total time spent today was 50 minutes for this encounter. Time includes reviewing laboratory test/imaging results, reviewing pertinent medical records, obtaining and reviewing medical history, performing an appropriate exam, ordering medications,
tests and procedures. Time also includes documentation of this encounter, coordinating patient care and communicating with other healthcare professionals. Total time does not include separately billed tests performed on this date of service.
Subjective Data
-
Date of Service:
Date of Service: June 07, 2025
Chief Complaint: Pulmonary Follow Up
Subjective:
No new events, remains on O2
Objective Data
Data Reviewed
Vital Signs / I&O / Oxygen:
Vital Signs
Temp Pulse Resp BP Pulse Ox
98.0 F 60 28 115/53 91
06/07/25 03:00 06/07/25 07:58 06/07/25 07:58 06/07/25 03:25 06/07/25 07:58
Intake and Output
06/06/25 06/07/25 06/08/25
06:59 06:59 06:59
Intake Total 1380 / 1380 880 / 880
Output Total 100 / 100
Balance 1380 / 1380 780 / 780
SaO2 91
Nasal Cannula flow liters per 2
minute
Physical Exam
General: Comfortable and Other (NAD)
HEENT: Normocephalic, Anicteric and Moist Mucous Membranes
Cardiovascular: S1-S2 and Regular Rhythm
Respiratory: Clear and Non-Labored Respirations
GI: Soft, Non Distended and Non Tender
Neurology: Awake, Alert, Oriented and No Motor Deficits
Skin: Warm, Dry and Good Color
Labs/Micro/Reports
Lab Data
06/07/25 05:04
06/07/25 05:04
Microbiology
06/05/25 01:44 Nose Nasal Screen MRSA (PCR) - Final
Staph aureus MRSA
06/05/25 01:41 Nasal Swab Influenza Types A & B (GEOFF) - Final
Negative for Influenza A & B, NAAT
Negative results must be combined with clinical observations
and patient history.
Nucleic Acid Amplification test (NAAT)performed on the
[employer] platform.
[2025-06-07] MEDS: ALPHAGAN 0.2% EYE DROPS 1 DROP LEFT EYE ×2 (09:58→20:07)
[2025-06-07] MEDS: LASIX 40 MG IV (09:59)
--- NOTE | 2025-06-07 09:59 | W.PN.HOSP.TC ---
Today's Communication/Plan
-
Speech eval.
CT chest.
Echo.
Pacemaker interrogation.
ILD serology.
Procalcitonin
Oxygen supplementation.
Empiric antibiotics
Attempt of diuresis
Assessment / Plan
Assessment / Plan
Impression:
Acute hypoxic respiratory failure
Multifocal bilateral infiltrates.
Elevated pro CHF BNP.
Conditions prior to admission:
Paroxysmal atrial fibrillation.
Amiodarone therapy.
Anticoagulation with Eliquis.
Status post dual-chamber PPM
Essential hypertension.
Aortic stenosis status post TAVR 2019
Hypothyroidism on replace
Tobacco use disorder.
Plan:
Acute hypoxic respiratory failure
Multifocal bilateral infiltrates
Recent hospitalization with COVID.
Differential diagnosis: Possibly multifocal pneumonia, healthcare acquired given recent hospitalizations, versus +/- component of CHF given elevated proBNP.
Afebrile with normal white count, minimal nonproductive cough.
No significant response to IV diuresis while on IV Lasix with increased oxygen requirements up to 4 L nasal cannula
Other differentials are aspiration, interstitial lung disease, vasculitis, pulmonary amiodarone toxicity.
While continuing empiric antibiotics (vancomycin/MRSA positive, cefepime) and attempt of IV diuresis,
Check CT of the chest.
ILD serology including ANCA antibodies.
Speech evaluation.
Procalcitonin.
Echocardiogram pending
Pacemaker interrogation.
Continue O2 supplementation
Consider addition of empiric corticosteroids.
COPD.
No evidence for bronchospasm.
Continue fluticasone/salmeterol
Continue DuoNebs.
Concern for acute CHF preserved EF
Recent echo in outside hospital reported with preserved biventricular function, status post TAVR.
No significant response to diuresis with plateau weight and worsening hypoxia while on IV Lasix.
Echo pending.
Will follow response to today's Lasix dose.
Noted with marginally low BP and initiated on midodrine.
Continue Coreg, digoxin (check digoxin level). Continue Farxiga
Paroxysmal atrial fibrillation
Status post pacemaker
ECG with paced rhythm
Continue amiodarone, Coreg
Hypothyroidism.
Noted with elevated TSH and free T4 while on amiodarone.
Continue preadmission dose of levothyroxine following TFTs and 3 to 4 weeks
Presumed urge incontinence on [employer]it[employer]
Anticipated Discharge: > 48 hours
Subjective/Interval History
-
Date of Service: June 07, 2025
Objective Data
-
Labs:
Laboratory Results
06/07/25
05:04
WBC 9.8
Hgb 10.2 L
Hct 32.6 L
Plt Count 170 D
Sodium 138
Potassium 4.2
Chloride 110 H
Carbon Dioxide 27
BUN 28 H
Creatinine 1.0
Glucose 101 H
Calcium 8.0 L
Total Bilirubin 0.8
AST 56 H
ALT 63 H
Alkaline Phosphatase 85
Vital Signs:
Vital Signs
Temp Pulse Resp BP Pulse Ox
98.1 F 62 21 90/46 91
06/07/25 09:22 06/07/25 09:00 06/07/25 09:00 06/07/25 09:00 06/07/25 09:44
I&O
06/06/25 06/07/25 06/08/25
06:59 06:59 06:59
Intake Total 1380 / 1380 880 / 880
Output Total 100 / 100
Balance 1380 / 1380 780 / 780
Physical Exam
-
General: Well Developed and No Apparent Distress
HEENT: Normocephalic, Atraumatic and Moist Mucous Membranes
Respiratory: Clear to Auscultation
Cardiac: Regular Rhythm and S1/S2; Negative Murmur, Rub or Gallop
GI: Soft, Nontender, Nondistended and Normal Bowel Sounds; Negative Organomegaly
Rectal: Deferred by Provider
Musculoskeletal: No Clubbing, No Cyanosis and No Edema
Skin: Negative Rash
Neuro: Nonfocal/Grossly Intact
[2025-06-07] MEDS: STERILE WATER FOR INJECTION 10 ML IV ×2 (10:00→16:37)
[2025-06-07] MEDS: MAXIPIME 1000 MG IV ×2 (10:01→16:37)
[2025-06-07] MEDS: COREG 3.125 MG PO (10:01)
[2025-06-07] MEDS: FEOSOL 325 MG PO (10:01)
[2025-06-07] MEDS: ELIQUIS 5 MG PO ×2 (10:01→20:07)
[2025-06-07] MEDS: DITROPAN 5 MG PO ×3 (10:02→22:04)
[2025-06-07] MEDS: KCL 20 MEQ PO (10:02)
[2025-06-07] MEDS: FARXIGA 10 MG PO (10:02)
[2025-06-07] MEDS: PACERONE 200 MG PO (10:03)
[2025-06-07] MEDS: TRUSOPT 2% OPHTHALMIC SOLUTION 1 DROP LEFT EYE ×2 (10:04→20:08)
[2025-06-07] MEDS: VANCOCIN 150 IV (10:59)
[2025-06-07] MEDS: FLUSH (NSS) 1 FLUSH IV (11:00)
--- NOTE | 2025-06-07 11:50 | W.PN.CARDCBS ---
Addendum entered and electronically signed by Blayne Woodard MD 06/07/25 13:26:
84 year old woman in assisted living. Now presenting with weakness and dyspnea June 06 and admitted with presumed pneumonia and possible acute HFpEF
PMH/PSH: HEMAL, probably 2019, pacemaker 2021, recent pneumonia, recent Covid, hypertension, polymyalgia rheumatica, osteoarthritis, paroxysmal atrial fibrillation, [employer] pacer, hypercholesterolemia, COPD, recently stopped smoking, ADL
dysfunction, average 1 pack of cigarettes per day
Current medications: DuoNebs, IV vancomycin, cefepime, apixaban 5 mg twice daily, atorvastatin 20 mg at bedtime, Alphagan eyedrops, carvedilol 3.125 twice daily, Farxiga, digoxin 125 mcg daily, Trusopt, Lexapro, iron, levothyroxine 75 mcg daily,
Ditropan 5 3 times daily, potassium 20 mill equivalents daily, amiodarone 200 mg daily, furosemide 40 mg IV daily, melatonin
104/53, pulse 61, respiratory rate 27, afebrile, chronically ill-appearing,, diminished breath sounds some rhonchi bilateral perihilar infiltrates, elevated diaphragms, abdomen benign 1+ edema
Echo March 2025: EF 62%, normal RV, mean transcatheter aortic valve gradient 10 mmHg, no AR, mean mitral valve gradient 3 mmHg, Mac, mild MR,
Repeat echo: Pending
CT chest with pulmonary embolism protocol: Pending
Hemoglobin 10.2, BUN is 28, creatinine is 1.0, potassium is 4.2, free T4 is 2.3
ProBNP 7570, troponin undetectable
Impression:
Acute on chronic HFpEF
Possible pneumonia
Recent COVID
Paroxysmal atrial fibrillation on amiodarone
Permanent pacemaker
Hypertension
HEMAL 2019
Polymyalgia rheumatica
Osteoarthritis
Tobacco use
Plan:
Continue IV furosemide.
Considerations could include SGLT2 antagonist and spironolactone
CT with pulmonary embolism protocol pending. Concern has been raised about possible amiodarone toxicity. Perihilar distribution on chest x-ray could be consistent with heart failure, will await clinical response to diuresis.
Will interrogate pacemaker
Will review records.
Original Note:
Today's Communication / Plan
-
Await records from primary underwater roboticist
Continue with Lasix 40 mg IV daily
CT chest to look for possible amiodarone lung toxicity is being ordered by hospitalist attending
Impression / Plan
-
PCP: Dr. Chris Taylor
Tariff Counsel: Dr. Js Ornelas with [facility] cardiology [[phone]]
Impression:
Admitted with acute hypoxic respiratory failure with CHF and PNA 06/04/2025
Acute hypoxic respiratory failure
Admissions to [facility] for PNA and COVID 04/11/2025 and 05/12/2025
Paroxysmal A-fib
Chronic Eliquis OAC
Chronic amiodarone and digoxin therapy
PPM, possibly [employer], 2021
HTN
s/p TAVR for severe at [facility] 2019
History of aortic stenosis status post TAVR, details unclear believe occurred at [place] in 2019
Osteoarthritis
Polymyalgia rheumatica
Tobacco dependence
Echo 06/07/2025: Study pending
Plan:
-Patient admitted with acute hypoxic respiratory failure due to CHF and PNA. Cardiology consulted for CHF, A-fib and PPM
-I called patient's primary underwater roboticist on 06/07/2025 and requested records including last echo and device check, I left a message on the medical records primary care sales representative line, Shana, at [phone].
-Patient being treated with vancomycin and cefepime for possible PNA
-Case reviewed with hospitalist attending there is also concern for possible amiodarone lung toxicity and CT of the chest is planned. Patient was taking amiodarone 200 mg BID for an unknown period of time prior to admission. Again, await records
from primary cardiology
-Weight was not checked on 06/07/2025, order for daily weights placed by me. I&O not accurate. Patient remains on mid flow at 8 L and was intolerant of attempts at weaning early on 06/07/2025
-Lasix 40 mg IV daily is ordered. Patient was taking Lasix 20 mg PO daily prior to admission
-EF unknown, records pending from primary underwater roboticist and echo pending for 06/07/2025
-Patient has a [employer] PPM in place, I requested the last device check from her primary underwater roboticist.
-Patient with known paroxysmal A-fib and telemetry reviewed by me on 06/07/2025 is AV paced
-Outpatient dose of amiodarone 200 mg BID has been reduced to once a day. Concern for possible amiodarone lung toxicity and plan for CT chest as outlined above.
-Outpatient dose of digoxin 125 mcg daily is on hold, digoxin level was 1.9 on 06/07/2025
-Outpatient dose of Coreg 3.125 mg BID has been continued
-Outpatient dose of Eliquis 5 mg BID (age 84, wt 75.5 kg and Cre 1.0) has been continued
-
Progress Note - Tariff Counsel
Subjective
Date of Service: June 07, 2025
Ongoing SOB
Objective
Labs:
06/07/25 05:04
06/07/25 05:04
Labs
Hgb 10.2 g/dL (12.0-16.0) L 06/07/25 05:04
Hct 32.6 % (37.0-47.0) L 06/07/25 05:04
Plt Count 170 10^3/uL (130-400) D 06/07/25 05:04
Sodium 138 mmol/L (135-145) 06/07/25 05:04
Potassium 4.2 mmol/L (3.5-5.1) 06/07/25 05:04
BUN 28 mg/dl (7-17) H 06/07/25 05:04
Creatinine 1.0 mg/dL (0.6-1.0) 06/07/25 05:04
Glucose 101 mg/dl (70-99) H 06/07/25 05:04
Digoxin 1.9 ng/ml (0.8-2.0) 06/07/25 05:04
Troponins
06/04/25 06/05/25
17:36 01:31
Troponin I < 0.012 < 0.012
Vital Signs and I&O:
Vital Signs
Temp Pulse Resp BP Pulse Ox
98.1 F 61 27 104/53 90
06/07/25 09:22 06/07/25 10:10 06/07/25 10:10 06/07/25 10:10 06/07/25 10:10
Vital Signs
Temp Pulse Resp BP Pulse Ox
98.1 F 61 27 104/53 90
06/07/25 09:22 06/07/25 10:10 06/07/25 10:10 06/07/25 10:10 06/07/25 10:10
Intake & Output
06/05/25 06/06/25 06/07/25 06/08/25
06:59 06:59 06:59 06:59
Intake Total 1380 / 1380 880 / 880 390 / 390
Output Total 100 / 100
Balance 1380 / 1380 780 / 780 390 / 390
Physical Exam
Physical Exam
GEN: AAOx3
LUNGS: 8 L mid flow. Diffuse rales without wheeze
CV: AV paced on telemetry. Reg, no murmur
EXT: Trace B/L LE edema
NEURO: Gross non-focal
SKIN: No rash
[2025-06-07 11:55] LABS: Procalcitonin 0.08 ng/ml (0.0-0.25)
--- NOTE | 2025-06-07 13:18 | PN.CDI ---
CDI
- -
CDI:
Physician Documentation Request
Admit Date: 06/04/25 21:37
Dear Doctor Nathen,
Please review the following and provide your response in the progress notes.
Clinical Indicators:
- RN Skin assessments indicate Stage 2 sacrum pressure injury, POA
Physician documentation of the type and location of wounds is required for compliant documentation. Based on the above clinical findings and your assessment, please provide the following in your progress note:
1. Location of the ulcer/wound, including laterality.
2. Type (etiology) of ulcer/wound:
- Arterial (ischemic) ulcer
- Venous stasis ulcer
- Pressure (decubitus) ulcer
- Other
Use of terms such as suspected, likely, concern for, or probable (associated with a specific diagnosis that is being evaluated, monitored, or treated as if it exists) are acceptable and can be coded in the inpatient setting, when documented at the
time of discharge.
Thank you,
Soren Seaman RN
CDI Specialist
Please use your independent medical judgment in providing your response.
*Source: National Pressure Ulcer Advisory Panel (NPUAP)
[2025-06-07] MEDS: LEXAPRO 15 MG PO (14:09)
--- NOTE | 2025-06-07 14:12 | PTCARENOTE ---
Patient confused, oriented to self only. Poor short term memory. Constantly trying to get out of bed and activating bed alarm. According to daughter this is not her baseline mental status. Higher O2 demand. Midflow currently between 6-8L.
Waiting for Lung CT r/o PE. Using bed ellis. Poor appetite.
--- NOTE | 2025-06-07 20:00 | PTCARENOTE ---
Resumed care of pt laying in bed AAOx1- confused and yelling out. Pt asking 'whats going on'. Reality orientation provided. Hr in the 60's 100% AV paced on the monitor. Lungs dec with B/L base crackles. POX 93% on 8 LO2 midflow NC. Occasional dry
cough. + bowel round abd. Pt able to request bedpan when needed. +1 B/L LE edema. B/L LE discoloration. Weak pedal pulses present. Right AC int capped. B/L hand int capped. Bed alarm in place. Call gutiérrez in reach. Pt not understanding call gutiérrez and
continues to yell when needs something. Will continue to monitor.
[2025-06-07] MEDS: COREG PO (20:07)
--- NOTE | 2025-06-07 20:30 | PTCARENOTE ---
Pt to and from CT without issues. Pt resting in bed. Bed alarm in place. Will continue to monitor.
[2025-06-07] MEDS: CLARITIN 10 MG PO (22:04)
[2025-06-07] MEDS: MELATONIN 10 MG PO (22:04)
[2025-06-07] MEDS: LIPITOR 20 MG PO (22:05)
[2025-06-07] MEDS: XALATAN OPHTHALMIC SOLUTION 1 DROP LEFT EYE (22:05)
[2025-06-07] MEDS: ATIVAN 0.5 MG PO (22:05)
[2025-06-08] VITALS (32 sets, daily range): BP systolic 85–146; BP diastolic 44–76; BMI 27.0
[2025-06-08] MEDS: MAXIPIME 1000 MG IV ×4 (00:02→23:17)
[2025-06-08] MEDS: STERILE WATER FOR INJECTION 10 ML IV ×4 (00:02→23:17)
--- NOTE | 2025-06-08 01:05 | PTCARENOTE ---
POX dropping while pt sleeping. POX 88% on 12 Lo2 Midflow. Midflow increased to 15 liters. POX now 90%. RT notified. Will continue to monitor.
--- NOTE | 2025-06-08 03:25 | W.PN.UPDATE ---
Update Note
Progress Note Update
~ 1 am POX dropping while pt sleeping. POX 88% on 12 Lo2 Midflow. Midflow increased to 15 liters. POX now 90%. RT notified.
~ 4 am Pt continues to sumit with oxygenation. Maxed on midflow POX 88%. RT at bedside. ABG obtained. Pt placed on Hi Flow NC 50L/60%. POX now 92%. No other changes.
~ 4:30 am Received am ABG, �reviewed with covering provider who assessed patient. Vital signs stable; patient awakens to voice. Obtain pCXR and continue current plan of care at this time.
[2025-06-08 03:48] LABS: B.E. -0.7 mmol/L; HCO3 25.4 mmol/L (21-28); O2 Saturation % 92.2 % (94-98); O2 Therapy 100%; PCO2 47 mmHg (32-35); PO2 62 mmHg (83-108)
--- NOTE | 2025-06-08 03:58 | PTCARENOTE ---
Pt continues to sumit with oxygenation. Maxed on midflow POX 88%. RT at bedside. ABG obtained. Pt placed on Hi Flow NC 50L/60%. POX now 92%. No other changes at this time. Will continue to monitor.
[2025-06-08 03:59] LABS: Hematocrit 33.6 % (37.0-47.0); Hemoglobin 10.5 g/dL (12.0-16.0); Mean Corp Hgb Conc. 31.3 g/dL (33.0-37.0); Mean Corpuscular Volume 90.1 fL (81.0-99.0); Platelet Count 172 10^3/uL (130-400); Red Cell Dist. Width 18.6 % (11.5-14.5)
[2025-06-08 04:27] LABS: ALT (SGPT) 63 U/L (0-35); AST (SGOT) 55 U/L (14-36); Albumin 1.9 g/dl (3.5-5.0); Alkaline Phosphatase 96 U/L (38-126); Blood Urea Nitrogen 26 mg/dl (7-17); Calcium 7.8 mg/dl (8.4-10.2); Carbon Dioxide 26 mmol/L (22-30); Chloride 111 mmol/L (98-107); Estimated Creatinine Clearance 34 ml/min; Glucose 85 mg/dl (70-99); Potassium 4.0 mmol/L (3.5-5.1); Sodium 138 mmol/L (135-145); Total Protein 5.4 g/dl (6.3-8.2); eGFR 48.94
[2025-06-08] MEDS: SYNTHROID 75 MCG PO (06:01)
[2025-06-08] MEDS: ADVAIR HFA 115/21 MCG INHALER 2 PUFF INH ×2 (07:30→19:35)
[2025-06-08] MEDS: TRUSOPT 2% OPHTHALMIC SOLUTION 1 DROP LEFT EYE ×2 (09:08→20:58)
[2025-06-08] MEDS: COREG PO (09:09)
[2025-06-08] MEDS: ALPHAGAN 0.2% EYE DROPS 1 DROP LEFT EYE ×2 (09:10→20:58)
--- NOTE | 2025-06-08 09:17 | PTCARENOTE ---
PT difficult to arouse, responds to tactile stimuli, but briefly- then falls back asleep BP 88/76, MAP 83. HR 62 continues with highflo.
[2025-06-08] MEDS: FARXIGA 10 MG PO (09:37)
[2025-06-08] MEDS: DITROPAN 5 MG PO (09:37)
[2025-06-08] MEDS: KCL PO ×2 (09:37→09:53)
[2025-06-08] MEDS: ELIQUIS 5 MG PO (09:37)
[2025-06-08] MEDS: FEOSOL 325 MG PO (09:37)
[2025-06-08] MEDS: LEXAPRO 15 MG PO (09:38)
[2025-06-08] MEDS: LASIX IV (09:38)
[2025-06-08] MEDS: PACERONE PO (09:38)
--- NOTE | 2025-06-08 09:53 | PTCARENOTE ---
pt more awake, but confused. reoriented, ST at bedside for attempt at medication administration with applesauce. pt unable to take PO potassium, had coughing after smaller crushed meds. ST recommending NPO, attending aware. BP now 112/60 94%
highflo. B/L lung sounds decreased
--- NOTE | 2025-06-08 10:47 | PHA.VAN.FU ---
Vancomycin Assessment / Plan
- Assessment
Renal Function: SCR Increasing (Scr 1 --> 1.1)
WBC's are: Trending Up
In the past 24 hrs, patient has been: Afebrile
Concomitant Antimicrobials: Cefepime
- Assessment - Therapeutic Drug Monitoring
Random Level: 18.9 - drawn ~16.5hr after previous dose of Vanc 750mg
- Dosing Plan
Dosing by Level: Hold off on dosing today
- Monitoring Plan
Random Level: 06/09 0600
- Follow Up
Pharmacy will continue to follow.
Vancomycin Follow UP
- -
Patient Age: 84
Patient Sex: Female
Vancomycin Day #: 4
Indication: Pulmonary/Respiratory
Requesting Provider: Agn Arellano
Pertinent Antimicrobial Allergies:
penicillins - unknown
cephalosporins - unknown
Height / Weight:
Height 5 ft 6 in
Actual Weight 75.9 kg
Pertinent Past Medical History: COVID
- Vital Signs / Lab Results
Temp Pulse Resp BP Pulse Ox
98.0 F 58 19 88/76 94
06/08/25 08:00 06/08/25 09:38 06/08/25 07:34 06/08/25 09:09 06/08/25 07:34
Lab Results - Hematology
06/05/25 06/06/25 06/07/25
01:31 10:46 05:04
WBC Cancelled 10.3 9.8
06/08/25
03:36
WBC 11.0 H
Lab Results - Chemistry
06/06/25 06/07/25 06/08/25
10:46 05:04 03:36
BUN 26 H 28 H 26 H
Creatinine 1.0 1.0 1.1 H
Estimated Creat Clear 38 38 34
Albumin 1.9 L 1.8 L 1.9 L
Therapeutic Drug Monitoring
Random Vancomycin 18.9 ug/ml 06/08/25 03:36
--- NOTE | 2025-06-08 11:04 | PTOTSP ---
Dysphagia Evaluation
Patient has an acute elevated risk factors for dysphagia (i.e., acute respiratory failure due to PNA and acute on chronic heart failure, AMS) and chronic risk factors (i.e., COPD, history of dysphagia/aspiration per video swallow study at OSH in
04/2025 with aspiration of thin liquids and severe esophageal dysmotility). During this evaluation patient with signs concerning for oral/pharyngeal dysphagia/aspiration with sparing amounts of thin liquids/puree to take oral medications with nurse.
Delayed gagging/nausea also noted.
Recommend:
1. Temporary NPO
2. Medication non-oral if able; otherwise essential medications that cannot be given non-oral crushed in puree if risk of not giving medication outweighs risk of aspiration
3. Hold ARHP at present given limited tolerance of sparing PO
4. Oral care 3x daily
5. VP [employer] f/u to determine if/when instrumental swallow testing warranted. Limited PO tolerance this date limits instrumental testing at present.
--- NOTE | 2025-06-08 11:09 | PTCARENOTE ---
daughter at bedside, discussing transfer and POC with attending. Pt remains confused, 92% on highflow. 101/46 hr 61. attempted x2 for lynch placement, unsuccessful. bladder scan 115.
--- NOTE | 2025-06-08 11:25 | W.PN.INTV ---
Today's Communication / Plan
Recommendations
Transferred to ICU, remains on HFNC
CXR worsening with pulmonary edema most likely given oliguria, LE edema, hypoalbuminemia
ECHO reviewed-stable function
Renal consult
GOC discussions with family, she remains full code but family needs to discuss HD, CPR/intubation
IV steroids are considered but this is less likely to be of value
PCT negative, stop abx
PAP alternatively could be tried in setting of CHF
Tenuous situation, but family discussions are ongoing
Discussed extensively with care team
Assessment
-
84-year-old female with a past medical history of hypertension, osteoarthritis, PMR, fibrocystic disease of breast, atrial fibrillation on Eliquis + amiodarone + dyslipidemia who presented with altered mental status, hypoxia and generalized
weakness. She had been admitted recently at [facility] for COVID-19 infection and was discharged to rehab. From there she went to an assisted living facility. Given her development of lower extremity edema and shortness of breath, with
saturations remaining <90% on her baseline 4 L/min, she was sent in for evaluation from her [facility] assisted living. The nurse at [facility] also said that the patient has had multiple falls recently with increased confusion. The
patient was released from the [facility] facility on 05/31. In the ER she was afebrile with normal pulse rate, breathing at 18 breaths/min, BP 108/51 and saturating 96% on 6 L/min. CXR shows multifocal opacities concerning for pneumonia. Of
note, patient's prior CT chest in December 2012 showed mild linear scarring in the lingula + posterior right upper lobe with otherwise small 2-3 mm nodule in the right upper lobe and no evidence of emphysema or pleural effusion, and subsegmental
atelectasis in the bases. Labs significant for mild leukocytosis to 11.3, Hb 11, absolute eosinophils 100, creatinine 1.3, proBNP 7570, mild transaminitis, serum albumin level 2.3, and COVID-19 antigen negative. In the ER patient was given Lasix
20 mg + potassium. She was initially admitted to Telemetry, however given worsening oxygen requirements, she was transferred to the IMU on 06/05 and was placed from midflow NC at 10L/min onto high-flow NC. She remains on midflow nasal cannula at
10L/min with SpO2 96%. Pulmonary service now consulted for additional management/recommendations.
Overnight, transitioned to HFNC due to worsening hypoxemia, transferred to ICU.
Acute hypoxic respiratory failure now on HFNC
Acute CHF, proBNP 7570
Oliguria, LE edema
Anemia (unknown baseline)
KATIE (unknown baseline)
Transaminitis
Hypoalbuminemia
Positive MRSA screen
Recent multifocal pneumonia/HAP - hospitalized at outside hospital in April 2025
Chronic conditions PARTS ADMINISTRATOR:
Atrial fibrillation on amiodarone + Eliquis
Chronic hypoxic respiratory failure on home oxygen, 4L
Hypertension
Osteoarthritis
Polymyalgia rheumatica
Giant cell arteritis (2005)
Fibrocystic disease of the breast
Dyslipidemia
Depression
Chronic ETOH abuse s/p fall, laceration to head, ER 2011
Pulmonary nodules on 2013 CT CHEST
Plan:
Notable 92% on 8L NC--now on HFNC, worsening hypoxemia overall
She has reported history of 4L O2 following last discharge but does not normally use O2 at baseline
She has never been told she has COPD but was a former smoker, 30 PYS quit about 10 years ago
Never saw Pulmonary as OP
Empirically started on broad-spectrum antibiotics with MRSA coverage to currently on cefepime + IV vancomycin
PCT negative, less likely infection, agree with stopping antibiotics
Aspiration precautions; keep HOB >30-45�
Mucolytics
Maintain SpO2 >90-94% with supplemental O2 as needed
Repeat CXR showing progressive bilateral interstitial process most consistent with pulm edema
proBNP repeat pending
Continue Advair 115mcg (home med) + prn nebulized bronchodilators - not currently bronchospastic
Incentive spirometer encouraged q1hr while awake
Can obtain baseline PFT while inpatient--hold while clinically worsening
proBNP 7570
Agree with ECHO, reviewed/stable function
Recommend diuresis per team
Renal consult for olguria
- Replete electrolytes with K>4, Mg>2
- Trend H/H and transfuse if needed to keep Hb>7g/dL; keep plt>20k, unless there is concern for bleeding then keep plt>50k
- Maintain euglycemia with goal BG >100 and <180
- DVT ppx: Eliquis (home med)
GOC discussions needed in terms of HD, CPR/intubation. She remains full code
Transferred to ICU, we will follow
Data:
CXR 06/04/2025: There are bilateral patchy airspace opacities which likely represent multifocal pneumonia.
06/08/25- Significantly progressed findings concerning for pulmonary edema versus bilateral pneumonia. Probable small left pleural effusion. Improved. Mild cardiomegaly. Stable
CT chest 2012: No acute disease of the chest. Three stable small nodular right upper lobe and right middle lobe suspected nodules as described above. A repeat study in approximately 6-12 months is suggested unless indicated otherwise clinically.
Too small to characterize hypodense renal lesion likely benign cyst.
CHEST CT 06/07/25- No CT evidence for an acute pulmonary thromboembolism. Moderate left and mild to moderate right pleural effusions. Bilateral pulmonary opacities suspicious for a combination of multifocal pneumonia and pulmonary edema. Bilateral
lower lobe volume loss secondary to compressive atelectasis from the pleural fluid. Imaging follow-up to resolution is recommended as an underlying malignancy would be difficult to completely exclude.
ECHO 06/07/25- 1. Normal LV size and function. No regional wall motion abnormalities. The estimated ejection fraction is 60-65%.
2. Indexed left atrial volume is mildly abnormal (35-41 ml/m2).
3. Mildly dilated right atrium.
4. Aortic valve replacement with peak/mean gradients of 33/18 mmHg.
5. There is thickening of the anterior and posterior leaflets of the mitral valve. Mild mitral valve stenosis. mild mitral valve regurgitation.
6. Moderate tricuspid regurgitation. Estimated pulmonary artery pressure of 29 mmHg assuming a right atrial pressure of 3 mmHg.
7. No evidence of pericardial effusion.
8. No prior studies for comparison.
Critical care statement: A total of 75 minutes of critical care time was provided for this patient today. This includes management of unstable vital signs, evaluation of the patient at bedside, reviewing the patient�s pertinent medical records
including radiographs, microbiology, laboratory evaluations, and��discussion with primary team, consultants, pharmacy, nutrition, physical therapy, case management, charge nurse, critical care nursing, and respiratory therapy. Reviewed case with
team extensively.
Subjective Dataa
Subjective Data
Date of Service:
Date of Service: June 08, 2025
Chief Complaint: Screen Printing Inspector Follow Up
Subjective:
Patient is worsening now on HFNC, transferred to ICU
She does not endorse worsening SOB complaints
Family at bedside
Objective Data
Data Reviewed
Vital Signs / I&O / Oxygen:
Vital Signs
Temp Pulse Resp BP Pulse Ox
98.0 F 60 28 101/46 93
06/08/25 08:00 06/08/25 11:00 06/08/25 11:00 06/08/25 11:00 06/08/25 11:00
Intake and Output
06/07/25 06/08/25 06/09/25
06:59 06:59 06:59
Intake Total 880 / 880 715 / 715
Output Total 100 / 100 500 / 500 200 / 200
Balance 780 / 780 215 / 215 -200 / -200
SaO2 93
Nasal Cannula flow liters per 50
minute
Physical Exam
General: Respiratory Distress (mild, dyspneic appearing but can converse), Comfortable and Other (NAD)
HEENT: Normocephalic and Anicteric
Cardiovascular: S1-S2, Regular Rhythm and Peripheral Edema (2+ BL)
Respiratory: Crackles and Non-Labored Respirations
GI: Soft, Non Distended and Non Tender
Neurology: Awake, Alert, Oriented and No Motor Deficits
Skin: Warm, Dry and Good Color
Labs/Micro/Reports
Lab Data
06/08/25 03:36
06/08/25 03:36
Laboratory Results
06/08/25
03:32
pH 7.34 L
pCO2 47 H
pO2 62 L
HCO3 25.4
O2 Delivery Level 100%
Microbiology
06/05/25 01:44 Nose Nasal Screen MRSA (PCR) - Final
Staph aureus MRSA
--- NOTE | 2025-06-08 11:34 | W.CON.NEPH ---
Consultation
-
Date/Time Consultation Requested: June 08, 2025 10 AM
Date/Time Consultation Performed: June 08, 2025 11 AM
Requesting Provider: Bird Sena
Performing Provider: Dr. Hamilton
Reason for Consultation: Acute kidney injury/oliguria
Medical History
-
Chief Complaint: KATIE with oliguria on CKD
History of Present Illness:
84-year-old female with a past medical history of hypertension, osteoarthritis, PMR, fibrocystic disease of breast, atrial fibrillation on Eliquis + amiodarone + dyslipidemia who presented with altered mental status, hypoxia and generalized
weakness. She had been admitted recently at [facility] for COVID-19 infection and was discharged to rehab. From there she went to an assisted living facility. Given her development of lower extremity edema and shortness of breath, with
saturations remaining <90% on her baseline 4 L/min, she was sent in for evaluation from her [facility] assisted living
Renal consultation for oliguria with increasing cr.
Workup includes pneumonia, CHF on high flow
Past Medical History
hypertension, osteoarthritis, PMR, fibrocystic disease of breast, atrial fibrillation on Eliquis + amiodarone + dyslipidemia
Social History
Tobacco: Former Smoker
Alcohol: None
Family History
Family History: Not Pertinent
Allergies / Home Medications
Allergy/AdvReac Type Severity Reaction Status Date / Time
Cephalosporins Allergy Unknown Verified 06/04/25 21:40
ibuprofen Allergy Unknown Verified 06/04/25 21:40
NSAIDS (Non-Steroidal Allergy Unknown Verified 06/04/25 21:40
Anti-Inflamma
penicillin G Allergy Unknown Verified 06/04/25 21:40
Penicillins Allergy Unknown Verified 06/04/25 21:40
�Medication �Instructions �Recorded �Confirmed �Type
potassium chloride 20 mEq 20 meq PO DAILY Electrolyte 08/25/12 06/04/25 History
tablet,extended release Repletion
acetaminophen 325 mg tablet 650 mg PO Q6HPRN PRN mild pain 06/04/25 06/04/25 History
(Tylenol)
albuterol sulfate 90 mcg/actuation 2 puff inhalation R Q8HPRN PRN sob 06/04/25 06/04/25 History
aerosol inhaler
amiodarone 200 mg tablet 200 mg PO BID Arrhythmia 06/04/25 06/04/25 History
apixaban 5 mg tablet (Eliquis) 5 mg PO BID Blood Clot 06/04/25 06/04/25 History
Prevention/Tx
atorvastatin 20 mg tablet (Lipitor) 20 mg PO HS High Cholesterol 06/04/25 06/04/25 History
brimonidine 0.2 % eye drops 1 drp LEFT EYE BID Eye Condition 06/04/25 06/04/25 History
carvedilol 3.125 mg tablet (Coreg) 3.125 mg PO BID Heart Failure 06/04/25 06/04/25 History
cholecalciferol (vitamin D3) 50 50 mcg PO DAILY Supplement 06/04/25 06/04/25 History
mcg (2,000 unit) tablet (Vitamin
D3)
cyanocobalamin (vitamin B-12) 1,000 mcg PO DAILY Supplement 06/04/25 06/04/25 History
1,000 mcg tablet
dapagliflozin propanediol 10 mg 10 mg PO DAILY Heart Failure 06/04/25 06/04/25 History
tablet (Farxiga)
digoxin 125 mcg (0.125 mg) tablet 125 mcg PO DAILY Heart Failure 06/04/25 06/04/25 History
dorzolamide 2 % eye drops 1 drp LEFT EYE BID Eye Condition 06/04/25 06/04/25 History
escitalopram oxalate 5 mg tablet 15 mg PO DAILY Depression 06/04/25 06/04/25 History
(Lexapro)
ferrous sulfate 325 mg (65 mg 325 mg PO DAILY Supplement 06/04/25 06/04/25 History
iron) tablet
fexofenadine 60 mg tablet 60 mg PO HS Allergies 06/04/25 06/04/25 History
fluticasone 250 mcg-salmeterol 50 1 inh inhalation R BID 06/04/25 06/04/25 History
mcg/dose blistr powdr for Lung/Breathing Issues
inhalation (Advair Diskus)
furosemide 20 mg tablet (Lasix) 20 mg PO DAILY Fluid 06/04/25 06/04/25 History
Retention/Swelling
ipratropium 0.5 mg-albuterol 3 mg 3 ml inhalation R QID 06/04/25 06/04/25 History
(2.5 mg base)/3 mL nebulization Lung/Breathing Issues
soln
latanoprost 0.005 % eye drops 1 drp LEFT EYE HS Eye Condition 06/04/25 06/04/25 History
levothyroxine 75 mcg tablet 75 mcg PO DAILY Thyroid 06/04/25 06/04/25 History
(Synthroid)
lorazepam 0.5 mg tablet 0.5 mg PO DAILYPRN PRN anxiety 06/04/25 06/04/25 History
melatonin 5 mg tablet 5 mg PO HS Sleep 06/04/25 06/04/25 History
oxybutynin chloride 15 mg 15 mg PO DAILY Urinary Issue 06/04/25 06/04/25 History
tablet,extended release 24 hr
sennosides 8.6 mg tablet (senna) 8.6 mg PO DAILYPRN PRN constipation 06/04/25 06/04/25 History
Review of Systems
-
No chest pain. Shortness of breath
Unable to obtain full review of systems at this time due to: Acuity
Physical Exam
Vital Signs
Vital Signs
Temp Pulse Resp BP Pulse Ox
98.0 F 60 28 101/46 93
06/08/25 08:00 06/08/25 11:00 06/08/25 11:00 06/08/25 11:00 06/08/25 11:00
Lab Results
WBC 11.0 10^3/uL (4.8-10.8) H 06/08/25 03:36
RBC 3.73 10^6/uL (4.20-5.40) L 06/08/25 03:36
Hgb 10.5 g/dL (12.0-16.0) L 06/08/25 03:36
Hct 33.6 % (37.0-47.0) L 06/08/25 03:36
Plt Count 172 10^3/uL (130-400) 06/08/25 03:36
Sodium 138 mmol/L (135-145) 06/08/25 03:36
Potassium 4.0 mmol/L (3.5-5.1) 06/08/25 03:36
Chloride 111 mmol/L (98-107) H 06/08/25 03:36
Carbon Dioxide 26 mmol/L (22-30) 06/08/25 03:36
BUN 26 mg/dl (7-17) H 06/08/25 03:36
Creatinine 1.1 mg/dL (0.6-1.0) H 06/08/25 03:36
eGFR 48.94 06/08/25 03:36
Glucose 85 mg/dl (70-99) 06/08/25 03:36
Calcium 7.8 mg/dl (8.4-10.2) L 06/08/25 03:36
Albumin 1.9 g/dl (3.5-5.0) L 06/08/25 03:36
Physical Exam
General no acute distress
HEENT no cephalic atraumatic extraocular muscle intact no scleral icterus no JVD neck supple
lungs coarse breath sounds bilateral
heart regular S1-S2 positive
abdomen soft nontender positive bowel sounds
extremities no edema pulses present bilateral
Neurologically nonfocal alert and oriented x 3
Skin no lesions no abrasions no petechiae
Psych normal affect no bizarre behavior
Data Reviewed
-
Radiology: Image Personally Visualized and interpreted
CT Scan: Image Personally Visualized and interpreted
Labs: Labs Reviewed by wi, Discussed with Physician and Discussed with Nurse
Assessment/Plan
-
84-year-old female with a past medical history of hypertension, osteoarthritis, PMR, fibrocystic disease of breast, atrial fibrillation on Eliquis + amiodarone + dyslipidemia who presented with altered mental status, hypoxia and generalized
weakness. She had been admitted recently at [facility] for COVID-19 infection and was discharged to rehab. From there she went to an assisted living facility. Given her development of lower extremity edema and shortness of breath, with
saturations remaining <90% on her baseline 4 L/min, she was sent in for evaluation from her [facility] assisted [facility]
Renal consultation for oliguria with increasing cr.
Workup includes pneumonia, CHF on high flow
Impression
Acute on chronic kidney disease with oliguria
Pneumonia/CHF= bilateral pulmonary edema small effusions on imaging
Hypoalbuminemia 1.9
Transaminitis hepatic congestion
Chronic home O2 4 L
Plan.
Patient has decreased effective arterial blood volume with hypoalbuminemia hypotension
Treviño catheter placed for critical i/o
Antibiotics
IV albumin every 8
Lasix IV twice daily 80 mg
No acute need for dialysis at this time
Discussed with critical care team, hospitalist, pulmonary medicine

33 minutes critical care time
--- NOTE | 2025-06-08 11:45 | W.PN.HOSP.TC ---
Today's Communication/Plan
-
With worsening respiratory failure and high oxygen requirements transferred to ICU.
Ongoing goals of care discussion.
Continue antibiotics.
N.p.o. with strict aspiration precautions.
Attempt of diuresis with albumin.
Daily weights.
Consider diagnostic and therapeutic thoracentesis
Home digoxin
Hold Eliquis
Assessment / Plan
Assessment / Plan
Impression:
Acute hypoxic respiratory failure
Multifocal bilateral infiltrates.
KATIE
Hypoalbuminemia
Conditions prior to admission:
Paroxysmal atrial fibrillation.
Amiodarone therapy.
Anticoagulation with Eliquis.
Status post dual-chamber PPM
Essential hypertension.
Aortic stenosis status post TAVR 2019
Hypothyroidism on replace
Tobacco use disorder.
Plan:
Acute hypoxic respiratory failure
Multifocal bilateral infiltrates
Recent hospitalization with COVID.
Differential diagnosis: Possibly multifocal pneumonia, healthcare acquired given recent hospitalizations, versus aspiration syndrome, versus +/- component of CHF given elevated proBNP, vasculitis (less likely), amiodarone lung toxicity
Afebrile with normal white count, minimal nonproductive cough.
CT of the chest confirmed negative for PE. Bilateral infiltrates with bilateral pleural effusions
Echocardiogram with preserved LVEF at 60% and no significant valvular abnormalities
Procalcitonin negative
Recent VSE at [facility] consistent with severe aspiration and proximal esophageal dysfunction
Bedside speech evaluation on 06/08 with severe aspiration recommended NPO.
Respiratory status worsening with increased oxygen requirements up to high flow oxygen on 06/08
Follow-up chest x-ray with worsening bilateral infiltrate and pleural effusion
Continue broad-spectrum antibiotics: Vancomycin/cefepime
Attempt to intensify diuresis with IV Lasix and addition of albumin
Consider diagnostic and therapeutic thoracentesis
N.p.o. with aspiration precautions with consideration of repeating VSE when respiratory status allows
Ongoing goals of care discussion
KATIE
Hypoalbuminemia.
Treviño catheter placed on 06/08.
Observe renal function with IV diuresis
Nephrology related
COPD.
No evidence for bronchospasm.
Continue fluticasone/salmeterol
Continue DuoNebs.
Consider steroid trial if not responding to current treatment
Concern for acute CHF preserved EF
Recent echo in outside hospital reported with preserved biventricular function, status post TAVR.
No significant response to diuresis with plateau weight and worsening hypoxia while on IV Lasix.
Echo with preserved biventricular function no significant valvular abnormalities
Continue diuresis as above
Noted with marginally low BP and initiated on midodrine.
Continue Coreg, digoxin (check digoxin level). Continue Farxiga
Paroxysmal atrial fibrillation
Status post pacemaker
ECG with paced rhythm
Continue amiodarone, Coreg
Hold Eliquis acutely while n.p.o.
Hold digoxin with level of 1.9
Hypothyroidism.
Noted with elevated TSH and free T4 while on amiodarone.
Continue preadmission dose of levothyroxine following TFTs and 3 to 4 weeks
Presumed urge incontinence on Ditropan TRAFFIC OPERATOR
Full code per
Ongoing goals of care discussion
Anticipated Discharge: > 48 hours
Subjective/Interval History
-
Date of Service: June 08, 2025
Objective Data
-
Labs:
Laboratory Results
06/08/25 06/08/25
03:32 03:36
WBC 11.0 H
Hgb 10.5 L
Hct 33.6 L
Plt Count 172
HCO3 25.4
Sodium 138
Potassium 4.0
Chloride 111 H
Carbon Dioxide 26
BUN 26 H
Creatinine 1.1 H
Glucose 85
Calcium 7.8 L
Total Bilirubin 1.0
AST 55 H
ALT 63 H
Alkaline Phosphatase 96
Vital Signs:
Vital Signs
Temp Pulse Resp BP Pulse Ox
98.0 F 60 28 101/46 93
06/08/25 08:00 06/08/25 11:00 06/08/25 11:00 06/08/25 11:00 06/08/25 11:00
I&O
06/07/25 06/08/25 06/09/25
06:59 06:59 06:59
Intake Total 880 / 880 715 / 715
Output Total 100 / 100 500 / 500 200 / 200
Balance 780 / 780 215 / 215 -200 / -200
Physical Exam
-
General: Well Developed and No Apparent Distress
HEENT: Normocephalic, Atraumatic and Moist Mucous Membranes
Respiratory: Decreased Breath Sounds (Bilaterally at the bases); Negative Wheezes
Cardiac: Regular Rhythm and S1/S2; Negative Murmur, Rub or Gallop
GI: Soft, Nontender, Nondistended and Normal Bowel Sounds; Negative Organomegaly
Rectal: Deferred by Provider
Musculoskeletal: No Clubbing, No Cyanosis and No Edema
Skin: Negative Rash
Neuro: Nonfocal/Grossly Intact
[2025-06-08] MEDS: FLEXBUMIN 50 IV ×2 (11:51→20:57)
[2025-06-08] MEDS: LASIX 80 MG IV ×2 (11:52→16:59)
--- NOTE | 2025-06-08 12:18 | W.PN.CARDCBS ---
Today's Communication / Plan
-
DNR
Continued optimization of medical therapies
Impression / Plan
-
PCP: Dr. Chris Taylor
[employer]: Dr. Js Ornelas with [facility] cardiology [[phone]]
Impression:
Admitted with acute hypoxic respiratory failure with CHF and PNA 06/04/2025
Acute hypoxic respiratory failure
Admissions to [facility] for PNA and COVID 04/11/2025 and 05/12/2025
Paroxysmal A-fib
Chronic Eliquis OAC
Chronic amiodarone and digoxin therapy
PPM, possibly [employer], 2021
HTN
s/p TAVR for severe at [facility] 2019
History of aortic stenosis status post TAVR, details unclear believe occurred at [facility] in 2019
Osteoarthritis
Polymyalgia rheumatica
Tobacco dependence
Echo 06/07/2025: Study pending
Plan:
Pulmonary status has significantly deteriorated overnight. Dyspnea is likely multifactorial related to heart failure, possible pneumonia underlying COPD, aspiration, etc.
Prognosis is very guarded.
Appreciate efforts of nephrology who will be administering IV furosemide along with albumin.
Discussed via [place] text with pulmonary, critical care, hospitalist. Discussed situation with daughters.
Daughters are in agreement that patient would want reasonable efforts but not extraordinary means to optimize her health status and agree that she would wish to be DNR. Order has been placed.
In the meantime, okay to hold oral medications in the event that aspiration is a major ongoing issue. Based on conversation with daughters regarding mother's wishes, it seems that a feeding tube would not be a good option.
We will continue to follow.
-
Progress Note - [employer]
Subjective
Date of Service: June 08, 2025:
84 year old woman in assisted living. Now presenting with weakness and dyspnea June 06 and admitted with presumed pneumonia and possible acute HFpEF
PMH/PSH: HEMAL, probably 2019, pacemaker 2021, recent pneumonia, recent Covid, hypertension, polymyalgia rheumatica, osteoarthritis, paroxysmal atrial fibrillation, [employer] pacer, hypercholesterolemia, COPD, recently stopped smoking, ADL
dysfunction, average 1 pack of cigarettes per day
Current meds: Apixaban 5 mg twice daily on hold, Alphagan eyedrops, carvedilol 3.125 twice daily on hold, dapagliflozin on hold, digoxin 125 mcg daily on hold, Trusopt, escitalopram on hold, levothyroxine on hold, oxybutynin on hold, potassium on
hold, amiodarone 200 mg daily on hold, furosemide 80 mg IV twice daily, Levophed, albumin
Increasing dyspnea overnight now in ICU on high flow. Patient without dyspnea at present on high flow. Says that her night was difficult however. Is somewhat confused, 2 daughters at bedside.
111/52, pulse 60, respiratory rate 17, weight is 75.9 kilos, down 0.75 kg, no acute distress, somewhat confused, diminished breath sounds, regular rate and rhythm, no obvious murmurs, abdomen benign, 1+ to 2+ edema
Chest x-ray, bilateral infiltrates pacemaker with [employer]
White count 11, hemoglobin 10.5, ABG 7.34, pCO2 47, pO2 62 on 100%, bicarb 25, BUN and creatinine are 26 and 1.1, proBNP is 7888, unchanged from admission, digoxin was 1.9 on June 07
Echo 06/07/2025: EF 60-65%, mildly dilated left atrium and right atrium, TAVR with peak/mean gradient 33/18 mmHg, mean mitral valve gradient 3.5 mmHg, peak gradient 17 mmHg, mitral valve area greater than 2, pulmonary artery systolic pressure is 29
mmHg
ECG today AV paced at 60
Objective
Labs:
06/08/25 03:36
06/08/25 03:36
Labs
Hgb 10.5 g/dL (12.0-16.0) L 06/08/25 03:36
Hct 33.6 % (37.0-47.0) L 06/08/25 03:36
Plt Count 172 10^3/uL (130-400) 06/08/25 03:36
Sodium 138 mmol/L (135-145) 06/08/25 03:36
Potassium 4.0 mmol/L (3.5-5.1) 06/08/25 03:36
BUN 26 mg/dl (7-17) H 06/08/25 03:36
Creatinine 1.1 mg/dL (0.6-1.0) H 06/08/25 03:36
Glucose 85 mg/dl (70-99) 06/08/25 03:36
Digoxin 1.9 ng/ml (0.8-2.0) 06/07/25 05:04
Vital Signs and I&O:
Vital Signs
Temp Pulse Resp BP Pulse Ox
36.6 C 60 17 111/52 90
06/08/25 08:00 06/08/25 12:09 06/08/25 12:09 06/08/25 12:09 06/08/25 12:09
Vital Signs
Temp Pulse Resp BP Pulse Ox
36.6 C 60 17 111/52 90
06/08/25 08:00 06/08/25 12:09 06/08/25 12:09 06/08/25 12:09 06/08/25 12:09
Intake & Output
06/06/25 06/07/25 06/08/25 06/09/25
07:59 07:59 07:59 07:59
Intake Total 1380 / 1380 880 / 880 715 / 715 50 / 50
Output Total 100 / 100 500 / 500 300 / 300
Balance 1380 / 1380 780 / 780 215 / 215 -250 / -250
Physical Exam
Physical Exam
See above
[2025-06-08 12:35] LABS: Urine Character Slightly Cloudy (Clear)
--- NOTE | 2025-06-08 12:42 | PTCARENOTE ---
Pt transferred to ICU bed 3364 from IMU. SpO2 93-95% on 50L 60%. RODRIGUEZ and orthopnea. IV Lasix and Albumin given per order. BP 140/62 at this time. Levophed not started.
[2025-06-08] MEDS: DULCOLAX 10 MG RECTAL (13:11)
[2025-06-08 13:27] LABS: Urine Squamous Cell None seen /LPF (Few)
[2025-06-08 13:28] LABS: Urine Red Blood Cell None Seen /HPF (0-2)
--- NOTE | 2025-06-08 15:42 | CM ---
Following up on Patient.
RN stated that patient has a rough night and now her blood pressure is poor as well as her breathing so going to the ICU today.
PLAN: SNF vs. Return to [facility].
--- NOTE | 2025-06-08 16:12 | PTCARENOTE ---
Pt AAOx1. A-V paced. Denies SOB. Improved orthopnea. Good urine output with Lasix. See I&Os. Large BM after enema. Now resting comfortably. All other assessments unchanged. Daughter at bedside.
[2025-06-08] MEDS: XALATAN OPHTHALMIC SOLUTION 1 DROP LEFT EYE (20:58)
--- NOTE | 2025-06-08 21:32 | PTCARENOTE ---
Assumed care of pt at 1900. Pt is A/O x2 to person and place, pt forgetful and needs to be reoriented to time and situation. Received pt on HFNC 60%/50LPM and she has been maintaining SpO2 at around 95-96% most of the time, sat on side of bed for
about 10 minutes at which time she only desatted briefly to about 88% and quickly recovered on her own, also tolerated lying flat and rolling side to side to be cleaned up/have sheets changed. 100% AV placed on monitor, HR in 60s (80s with
activity). See nursing shift assessment flowsheet for full physical assessment details. Pt now resting in bed with eyes closed.
[2025-06-08] MEDS: VALIUM INJECTION 2.5 MG IV (23:11)
[2025-06-09] VITALS (30 sets, daily range): BP systolic 93–140; BP diastolic 36–80; PULSE 60; O2SAT 94–95; BMI 26.1
--- NOTE | 2025-06-09 00:13 | PTCARENOTE ---
Assessment mostly unchanged--remains on HFNC at 60% 50LPM. Pt has been more restless, moaning with most of her breaths, denies that she is in pain but has complained about the lynch catheter multiple times. Lynch is draining without issues. Pt
intermittently pulling off her O2 and will drop as low as 78% without it. Pt asking for something to help her sleep--noted in EMAR to have received po Ativan and Melatonin previous night. Discussed with ICU CAGE MANAGER P[place]ual [place]--since pt is NPO, x1 dose
of IV lorazepam ordered, which was auto-substituted with IV valium instead by pharmacy, see EMAR for administration details. Pt fell asleep afterwards but is easily arousable, noted to still be moaning from time to time. Pt repositioned for comfort.
[2025-06-09 03:30] LABS: Hematocrit 31.0 % (37.0-47.0); Hemoglobin 9.7 g/dL (12.0-16.0); Mean Corp Hgb Conc. 31.3 g/dL (33.0-37.0); Mean Corpuscular Volume 88.8 fL (81.0-99.0); Nucleated Red Blood Cells % 0 %; Platelet Count 154 10^3/uL (130-400); Red Cell Dist. Width 18.5 % (11.5-14.5)
[2025-06-09 03:56] LABS: Blood Urea Nitrogen 28 mg/dl (7-17); Calcium 7.8 mg/dl (8.4-10.2); Carbon Dioxide 30 mmol/L (22-30); Chloride 108 mmol/L (98-107); Estimated Creatinine Clearance 32 ml/min; Glucose 78 mg/dl (70-99); Potassium 3.3 mmol/L (3.5-5.1); Sodium 140 mmol/L (135-145); eGFR 44.08
[2025-06-09] MEDS: FLEXBUMIN 50 IV (04:14)
[2025-06-09] MEDS: KCL 270 MEQ IV ×2 (04:56→13:46)
[2025-06-09] MEDS: CALCIUM GLUCONATE 100 IV (04:56)
--- NOTE | 2025-06-09 05:13 | PTCARENOTE ---
Assessment unchanged. Pt has not slept much at all this shift, remains forgetful/confused and needing near-constant reminders about having a catheter, to keep O2 in her nose, about why she is in the hospital, etc. Remains on same HFNC settings,
desatted as low as 75% when O2 off, required NRB mask for short periods to recover and then able to remove again. 100% AV paced on monitor.
[2025-06-09] MEDS: LASIX 80 MG IV ×2 (07:42→15:56)
[2025-06-09] MEDS: ALPHAGAN 0.2% EYE DROPS 1 DROP LEFT EYE ×2 (07:42→19:28)
[2025-06-09] MEDS: MAXIPIME 1000 MG IV (07:43)
[2025-06-09] MEDS: STERILE WATER FOR INJECTION 10 ML IV (07:43)
--- NOTE | 2025-06-09 07:44 | W.PN.INTV ---
Today's Communication / Plan
Recommendations
Plan reviewed with attending
Wean oxygen as tolerated.
Stop abx.
Diurese as tolerated.
Assessment
-
84-year-old female with a past medical history of hypertension, osteoarthritis, PMR, fibrocystic disease of breast, atrial fibrillation on Eliquis + amiodarone + dyslipidemia who presented with altered mental status, hypoxia and generalized
weakness. She had been admitted recently at [facility] for COVID-19 infection and was discharged to rehab. From there she went to an assisted living facility. Given her development of lower extremity edema and shortness of breath, with
saturations remaining <90% on her baseline 4 L/min, she was sent in for evaluation from her [facility] assisted living. The nurse at [facility] also said that the patient has had multiple falls recently with increased confusion. The
patient was released from the snf facility on 05/31. In the ER she was afebrile with normal pulse rate, breathing at 18 breaths/min, BP 108/51 and saturating 96% on 6 L/min. CXR shows multifocal opacities concerning for pneumonia. Of
note, patient's prior CT chest in December 2012 showed mild linear scarring in the lingula + posterior right upper lobe with otherwise small 2-3 mm nodule in the right upper lobe and no evidence of emphysema or pleural effusion, and subsegmental
atelectasis in the bases. Labs significant for mild leukocytosis to 11.3, Hb 11, absolute eosinophils 100, creatinine 1.3, proBNP 7570, mild transaminitis, serum albumin level 2.3, and COVID-19 antigen negative. In the ER patient was given Lasix
20 mg + potassium. She was initially admitted to Telemetry, however given worsening oxygen requirements, she was transferred to the IMU on 06/05 and was placed from midflow NC at 10L/min onto high-flow NC. She remains on midflow nasal cannula at
10L/min with SpO2 96%.
Overnight, transitioned to HFNC due to worsening hypoxemia, transferred to ICU.
Currently weaned off 50L 60% HFNC to 15L midflow. Pt is alert and oriented able to answer questions appropriately.
#Acute hypoxic respiratory failure now on HFNC
- Notable 92% on 8L NC initially--now on 15L midflow weaned down from overnight HFNC
- She has reported history of 4L O2 following last discharge but does not normally use O2 at baseline
- She has never been told she has COPD but was a former smoker, 30 PYS quit about 10 years ago. Never saw Pulmonary as OP
- Empiric cefepime + IV vancomycin stopped
- PCT negative, less likely infection. CT demonstrates pleural effusions and basilar congestion/atelectasis more indicative of fluid overload
- Concern for aspiration- NPO
- Mucolytics
- Maintain SpO2 >90-94% with supplemental O2 as needed
- Continue Advair 115mcg (home med) + prn nebulized bronchodilators
- Incentive spirometer encouraged q1hr while awake
- Plan for CXR tomorrow
Acute CHF, proBNP 7570
- proBNP incerased tp 7880 from 7570
- Agree with ECHO, reviewed/stable function
- Continue diuresis
- Most liekly culprit of pulmonary edema in setting of fluid overload
#Oliguria, LE edema
- Recommend diuresis per team
- Renal consult for olguria
#Anemia (unknown baseline)
- Trend H/H and transfuse if needed to keep Hb>7g/dL; keep plt>20k, unless there is concern for bleeding then keep plt>50k
#KATIE (unknown baseline)
- Continue diuresis. Cr stable
- Replete electrolytes with K>4, Mg>2
#Transaminitis
#Hypoalbuminemia
- Improving
#Positive MRSA screen
#Recent multifocal pneumonia/HAP - hospitalized at outside hospital in April 2025
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
Atrial fibrillation on amiodarone + Eliquis
Chronic hypoxic respiratory failure on home oxygen, 4L
Hypertension
Osteoarthritis
Polymyalgia rheumatica
Giant cell arteritis (2005)
Fibrocystic disease of the breast
Dyslipidemia
Depression
Chronic ETOH abuse s/p fall, laceration to head, ER 2011
Pulmonary nodules on 2013 CT CHEST
Maintain euglycemia with goal BG >100 and <180
DVT ppx: subcut heparin. Unable to take PO eliquis currently
Diet: NPO per speech rec
GOC discussions needed in terms of HD, CPR/intubation. She is now DNR
Data:
CXR 06/04/2025: There are bilateral patchy airspace opacities which likely represent multifocal pneumonia.
06/08/25- Significantly progressed findings concerning for pulmonary edema versus bilateral pneumonia. Probable small left pleural effusion. Improved. Mild cardiomegaly. Stable
CT chest 2012: No acute disease of the chest. Three stable small nodular right upper lobe and right middle lobe suspected nodules as described above. A repeat study in approximately 6-12 months is suggested unless indicated otherwise clinically.
Too small to characterize hypodense renal lesion likely benign cyst.
CHEST CT 06/07/25- No CT evidence for an acute pulmonary thromboembolism. Moderate left and mild to moderate right pleural effusions. Bilateral pulmonary opacities suspicious for a combination of multifocal pneumonia and pulmonary edema. Bilateral
lower lobe volume loss secondary to compressive atelectasis from the pleural fluid. Imaging follow-up to resolution is recommended as an underlying malignancy would be difficult to completely exclude.
ECHO 06/07/25- 1. Normal LV size and function. No regional wall motion abnormalities. The estimated ejection fraction is 60-65%.
2. Indexed left atrial volume is mildly abnormal (35-41 ml/m2).
3. Mildly dilated right atrium.
4. Aortic valve replacement with peak/mean gradients of 33/18 mmHg.
5. There is thickening of the anterior and posterior leaflets of the mitral valve. Mild mitral valve stenosis. mild mitral valve regurgitation.
6. Moderate tricuspid regurgitation. Estimated pulmonary artery pressure of 29 mmHg assuming a right atrial pressure of 3 mmHg.
7. No evidence of pericardial effusion.
8. No prior studies for comparison.
Critical care statement: A total of 75 minutes of critical care time was provided for this patient today. This includes management of unstable vital signs, evaluation of the patient at bedside, reviewing the patient�s pertinent medical records
including radiographs, microbiology, laboratory evaluations, and��discussion with primary team, consultants, pharmacy, nutrition, physical therapy, case management, charge nurse, critical care nursing, and respiratory therapy. Reviewed case with
team extensively.
Subjective Dataa
Subjective Data
Date of Service:
Date of Service: June 09, 2025
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
Subjective:
Pt reports feeling well this morning. On HF, denies SOB or chest pain. Denies peripheral edema.
Objective Data
Data Reviewed
Vital Signs / I&O / Oxygen:
Vital Signs
Temp Pulse Resp BP Pulse Ox
97.7 F 72 22 102/51 94
06/09/25 07:31 06/09/25 06:00 06/09/25 06:00 06/09/25 06:00 06/09/25 05:00
Intake and Output
06/08/25 06/09/25 06/10/25
06:59 06:59 06:59
Intake Total 715 / 715 625 / 625
Output Total 500 / 500 2877 / 2877
Balance 215 / 215 -2252 / -2252
SaO2 94
Nasal Cannula flow liters per 50
minute
Physical Exam
General: Respiratory Distress (mild, dyspneic appearing but can converse), Comfortable and Other (NAD)
HEENT: Normocephalic and Anicteric
Cardiovascular: S1-S2, Regular Rhythm and Peripheral Edema (2+ BL)
Respiratory: Wheeze, Crackles and Non-Labored Respirations (on 50L HFNC 60%)
GI: Soft, Non Distended and Non Tender
Neurology: Awake, Alert, Oriented (waxing/waning orientation) and No Motor Deficits
Skin: Warm, Dry and Good Color
Labs/Micro/Reports
Lab Data
06/09/25 03:12
06/09/25 03:12
[2025-06-09 07:47] LABS: Magnesium 1.7 mg/dl (1.6-2.3)
[2025-06-09] MEDS: ADVAIR HFA 115/21 MCG INHALER 2 PUFF INH ×2 (07:48→20:14)
[2025-06-09] MEDS: TRUSOPT 2% OPHTHALMIC SOLUTION 1 DROP LEFT EYE ×2 (07:51→19:29)
--- NOTE | 2025-06-09 08:24 | PTCARENOTE ---
weaned to 15L midflow. SpO2 93%
--- NOTE | 2025-06-09 08:42 | W.PN.NEPH.PH ---
Today's Communication / Plan
-
diurese
Assessment/Plan
-
84-year-old female with a past medical history of hypertension, osteoarthritis, PMR, fibrocystic disease of breast, atrial fibrillation on Eliquis + amiodarone + dyslipidemia who presented with altered mental status, hypoxia and generalized
weakness. She had been admitted recently at [facility] for COVID-19 infection and was discharged to rehab. From there she went to an assisted living facility. Given her development of lower extremity edema and shortness of breath, with
saturations remaining <90% on her baseline 4 L/min, she was sent in for evaluation from her [facility]
Renal consultation for oliguria with increasing cr.
Workup includes pneumonia, CHF on high flow
Impression
Acute on chronic kidney disease with oliguria
Pneumonia/CHF= bilateral pulmonary edema small effusions on imaging
Hypoalbuminemia 1.9
Transaminitis hepatic congestion
Chronic home O2 4 L
Plan.
continue IV lasix
no albumin today
replete K
no dialysis needs, nor is she a good candidate for dialysis
follow BMP
continue abx
critical care time 31 minutes
-
-
Date of Service: June 09, 2025
CC / HPI / ROS
-
Chief Complaint:
KATIE
History of Present Illness:
KATIE/Cr stable 1.2
diuresing with IV lasix for decompensated HF
abx for PNA
BP stable
lynch in place
K low
critically ill in ICU
Review of Systems:
lethargic
no fever
Labs
-
Labs:
WBC 10.7 10^3/uL (4.8-10.8) 06/09/25 03:12
RBC 3.49 10^6/uL (4.20-5.40) L 06/09/25 03:12
Hgb 9.7 g/dL (12.0-16.0) L 06/09/25 03:12
Hct 31.0 % (37.0-47.0) L 06/09/25 03:12
Plt Count 154 10^3/uL (130-400) 06/09/25 03:12
Sodium 140 mmol/L (135-145) 06/09/25 03:12
Potassium 3.3 mmol/L (3.5-5.1) L 06/09/25 03:12
Chloride 108 mmol/L (98-107) H 06/09/25 03:12
Carbon Dioxide 30 mmol/L (22-30) 06/09/25 03:12
BUN 28 mg/dl (7-17) H 06/09/25 03:12
Creatinine 1.2 mg/dL (0.6-1.0) H 06/09/25 03:12
eGFR 44.08 06/09/25 03:12
Glucose 78 mg/dl (70-99) 06/09/25 03:12
Calcium 7.8 mg/dl (8.4-10.2) L 06/09/25 03:12
Soc-N-Rkkjcsydlbr Pept 7880 pg/ml 06/08/25 03:36
Albumin 1.9 g/dl (3.5-5.0) L 06/08/25 03:36
Physical Exam
-
Vital Signs:
Vital Signs
Temp Pulse Resp BP Pulse Ox
97.7 F 60 23 118/44 91
06/09/25 07:31 06/09/25 08:00 06/09/25 08:00 06/09/25 08:00 06/09/25 08:00
Cardiovascular:: Regular rate and rhythm
Respiratory:: Bilateral: Rhonchi
Lung Excursion:: Normal
Abdomen:: Nontender and Soft
Bowel Sounds:: Normal
Extremity Edema:: +2: Bilateral: (dependent thigh)
--- NOTE | 2025-06-09 09:06 | W.PN.CARDCBS ---
Today's Communication / Plan
-
Pulm status improving. Cont pulm toilet.
Concern for aspiration. Recent VSE at [facility] consistent with severe aspiration and proximal esophageal dysfunction
Cont IV diuresis as per nephrology. Appreciate nephrology. Received albumin.
Wt coming down. over 2L negative last 24 hrs.
AV paced
EF is preserved by recent echo Jun 07.
Cont supportive care, significant deconditioning
Impression / Plan
-
.
PCP: Dr. Chris Taylor
Campground Caretaker: Dr. Js Ornelas with [facility] cardiology [[phone]]
Impression:
Admitted with acute hypoxic respiratory failure with CHF and PNA 06/04/2025
Acute hypoxic respiratory failure
Admissions to [facility] for PNA and COVID 04/11/2025 and 05/12/2025
Paroxysmal A-fib
Chronic Eliquis OAC
Chronic amiodarone and digoxin therapy
PPM, possibly [employer], 2021
HTN
s/p TAVR for severe at [facility] 2019
History of aortic stenosis status post TAVR, details unclear believe occurred at [facility] in 2019
Osteoarthritis
Polymyalgia rheumatica
Tobacco dependence
Echo 06/07/2025: EF 60-65%. Aortic valve replacement with peak/mean gradients of 33/18 mmHg. Mild mitral valve stenosis. mild mitral valve regurgitation.
Moderate tricuspid regurgitation. Estimated pulmonary artery pressure of 29 mmHg assuming a right atrial pressure of 3 mmHg. No evidence of pericardial effusion.
Plan:
Pulm status improving. Cont pulm toilet.
Concern for aspiration. Recent VSE at [facility] consistent with severe aspiration and proximal esophageal dysfunction
Cont IV diuresis as per nephrology. Appreciate nephrology. Received albumin.
Wt coming down. over 2L negative last 24 hrs.
AV paced
EF is preserved by recent echo Jun 07.
Cont supportive care, significant deconditioning
Dr Woodard reviewed status with daughters last 24 hrs and pt is now DNR and likely would be against a feeding tube in accordance with pts wishes.
-
Progress Note - Campground Caretaker
Subjective
Date of Service: June 09, 2025
Pt seen and examined. No cp.
Objective
Labs:
06/09/25 03:12
06/09/25 03:12
Labs
Hgb 9.7 g/dL (12.0-16.0) L 06/09/25 03:12
Hct 31.0 % (37.0-47.0) L 06/09/25 03:12
Plt Count 154 10^3/uL (130-400) 06/09/25 03:12
Sodium 140 mmol/L (135-145) 06/09/25 03:12
Potassium 3.3 mmol/L (3.5-5.1) L 06/09/25 03:12
BUN 28 mg/dl (7-17) H 06/09/25 03:12
Creatinine 1.2 mg/dL (0.6-1.0) H 06/09/25 03:12
Glucose 78 mg/dl (70-99) 06/09/25 03:12
Digoxin 1.9 ng/ml (0.8-2.0) 06/07/25 05:04
Vital Signs and I&O:
Vital Signs
Temp Pulse Resp BP Pulse Ox
97.7 F 60 23 118/44 91
06/09/25 07:31 06/09/25 08:00 06/09/25 08:00 06/09/25 08:00 06/09/25 08:00
Vital Signs
Temp Pulse Resp BP Pulse Ox
97.7 F 60 23 118/44 91
06/09/25 07:31 06/09/25 08:00 06/09/25 08:00 06/09/25 08:00 06/09/25 08:00
Intake & Output
06/07/25 06/08/25 06/09/25 06/10/25
06:59 06:59 06:59 06:59
Intake Total 880 / 880 715 / 715 625 / 625
Output Total 100 / 100 500 / 500 2877 / 2877 75 / 75
Balance 780 / 780 215 / 215 -2252 / -2252 -75 / -75
Physical Exam
Physical Exam
General: No acute distress, AAOX3
Neck: Negative JVD
Heart: Regular, Negative S3 positive S1/S2, Negative S4, No murmur
Lungs: CTA b/l, negative wheezes/rales/rhonchi
Abd: Positive BS, NT/ND, neg rebound/rigidity/guarding
Ext: Negative cyanosis/clubbing/edema
Neuro: nonfocal
--- NOTE | 2025-06-09 12:00 | PTCARENOTE ---
Pt confused. Yells out. AV paced. SpO2 92-97% on 15L midflow. Treviño d/c'd. Voids on a bedpan. All other assessments unchanged.
--- NOTE | 2025-06-09 14:26 | CM ---
Chart reviewed and patient is currently requiring 15 liters of oxygen, physical therapy are recommending skilled placement, will send referrals to skilled facilities.
Plan; Skilled placement, patient is currently requiring 15 liters of oxygen.
--- NOTE | 2025-06-09 14:57 | W.PN.HOSP.TC ---
Today's Communication/Plan
-
Monitor in ICU
IV diuresis
Antibiotics discontinued
Aspiration precautions
Assessment / Plan
Assessment / Plan
Impression:
Acute hypoxic respiratory failure
Multifocal bilateral infiltrates.
KATIE
Hypoalbuminemia
Toxic metabolic encephalopathy secondary to acute illness and
Conditions prior to admission:
Paroxysmal atrial fibrillation.
Amiodarone therapy.
Anticoagulation with Eliquis.
Status post dual-chamber PPM
Essential hypertension.
Aortic stenosis status post TAVR 2019
Hypothyroidism on replace
Tobacco use disorder.
Plan:
Acute hypoxic respiratory failure
Multifocal bilateral infiltrates
Recent hospitalization with COVID.
Differential diagnosis: Possibly multifocal pneumonia, healthcare acquired given recent hospitalizations, versus aspiration syndrome, versus +/- component of CHF given elevated proBNP, vasculitis (less likely), amiodarone lung toxicity
Afebrile with normal white count, minimal nonproductive cough.
CT of the chest confirmed negative for PE. Bilateral infiltrates with bilateral pleural effusions
Echocardiogram with preserved LVEF at 60% and no significant valvular abnormalities
Procalcitonin negative
Recent VSE at [facility] consistent with severe aspiration and proximal esophageal dysfunction
Bedside speech evaluation on 06/08 with severe aspiration recommended NPO.
Respiratory status worsening with increased oxygen requirements up to high flow oxygen on 06/08
Follow-up chest x-ray with worsening bilateral infiltrate and pleural effusion
Volume status improves with attempt of diuresis and addition of albumin.
Antibiotics discontinued on 06/09.
Wean off O2 to nasal cannula
N.p.o. with aspiration precautions with consideration of repeating VSE when respiratory status allows
Ongoing goals of care discussion
Toxic metabolic encephalopathy secondary to acute illness and hypoxia
No focal neurologic findings.
Monitor closely. Avoid sedatives
KATIE
Hypoalbuminemia.
Treviño catheter placed on 06/08.
Observe renal function with IV diuresis
Nephrology related
COPD.
No evidence for bronchospasm.
Continue fluticasone/salmeterol
Continue DuoNebs.
Consider steroid trial if not responding to current treatment
Concern for acute CHF preserved EF
Recent echo in outside hospital reported with preserved biventricular function, status post TAVR.
No significant response to diuresis with plateau weight and worsening hypoxia while on IV Lasix.
Echo with preserved biventricular function no significant valvular abnormalities
Continue diuresis as above
Noted with marginally low BP and initiated on midodrine.
Continue Coreg, digoxin (check digoxin level). Continue Farxiga
Paroxysmal atrial fibrillation
Status post pacemaker
ECG with paced rhythm
Continue amiodarone, Coreg
Hold Eliquis acutely while n.p.o.
Hold digoxin with level of 1.9
Hypothyroidism.
Noted with elevated TSH and free T4 while on amiodarone.
Continue preadmission dose of levothyroxine following TFTs and 3 to 4 weeks
Presumed urge incontinence on Ditropan [employer]PART[employer]
Full code per
Ongoing goals of care discussion
Anticipated Discharge: > 48 hours
Subjective/Interval History
-
Date of Service: June 09, 2025
Objective Data
-
Labs:
Laboratory Results
06/09/25
03:12
WBC 10.7
Hgb 9.7 L
Hct 31.0 L
Plt Count 154
Sodium 140
Potassium 3.3 L
Chloride 108 H
Carbon Dioxide 30
BUN 28 H
Creatinine 1.2 H
Glucose 78
Calcium 7.8 L
Vital Signs:
Vital Signs
Temp Pulse Resp BP Pulse Ox
98.4 F 60 18 109/55 94
06/09/25 11:17 06/09/25 13:00 06/09/25 13:00 06/09/25 13:00 06/09/25 13:00
I&O
06/08/25 06/09/25 06/10/25
06:59 06:59 06:59
Intake Total 715 / 715 625 / 625 270 / 270
Output Total 500 / 500 2877 / 2877 1225 / 1225
Balance 215 / 215 -2252 / -2252 -955 / -955
Physical Exam
-
General: Well Developed and No Apparent Distress
HEENT: Normocephalic, Atraumatic and Moist Mucous Membranes
Respiratory: Decreased Breath Sounds (Bilaterally at the bases); Negative Wheezes
Cardiac: Regular Rhythm and S1/S2; Negative Murmur, Rub or Gallop
GI: Soft, Nontender, Nondistended and Normal Bowel Sounds; Negative Organomegaly
Rectal: Deferred by Provider
Musculoskeletal: No Clubbing, No Cyanosis and No Edema
Skin: Negative Rash
Neuro: Awake, Alert and Nonfocal/Grossly Intact; Negative Oriented (Disoriented)
[2025-06-09] MEDS: HEPARIN 5000 UNITS SC ×2 (15:56→23:09)
[2025-06-09] MEDS: STERILE WATER FOR INJECTION IV ×2 (16:01→22:43)
[2025-06-09 16:31] LABS: Glomerular Base Membrane Ab 0 AU/mL (0-19); Serine Protease-3, IgG 1 AU/mL (0-19)
--- NOTE | 2025-06-09 17:34 | PTCARENOTE ---
Pt became very anxious saying she has to go to the bathroom. Reminded pt that she has a purewick in place. Pt voided 200ml. Pt became increasingly anxious, confused, and restless, as well as twitching. Denied pain. Reported SOB. SpO2 96% on
10L NC at that time. Applied NRB. SpO2 increased to 99%. Blood glucose 88. Bladder scan 330ml. Pt encouraged to void again. Voided an additional 100ml. Pt slowly became calmer with emotional support. Reports just not feeling well. Vital
signs stable.
[2025-06-09 17:44] LABS: Glucose - Point of Care 88 mg/dl (70-99)
[2025-06-09] MEDS: VALIUM INJECTION 2.5 MG IV (18:28)
[2025-06-09 20:42] LABS: ANA, IgG Reflex to HEp-2 None Detected (None Detected)
[2025-06-09] MEDS: XALATAN OPHTHALMIC SOLUTION 1 DROP LEFT EYE (21:09)
--- NOTE | 2025-06-09 21:24 | PTCARENOTE ---
Received pt from previous RN. Pt is AAOx1 (self), confused, restless at times, anxious. Pt yells out, pt reoriented. AV paced on the monitor, MAP goal >65. Received pt on 10L midflow, weaned to 8L, lungs are diminished/crackles, tachypneic/shallow.
Pt incont of urine, pw in place. Bed alarm in place. CHG bath and mouth care provided. Call gutiérrez in reach. Safe environment maintained.
[2025-06-09] MEDS: ATIVAN 0.5 MG PO (22:40)
[2025-06-10] VITALS (14 sets, daily range): BP systolic 103–128; BP diastolic 49–92; BMI 25.4
[2025-06-10 00:11] LABS: Jo-1 Antibodies 3 AU/mL (0-40)
--- NOTE | 2025-06-10 00:21 | PTCARENOTE ---
Systems reviewed, no new changes in assessment. Safe environment maintained.
[2025-06-10 01:28] LABS: ds-DNA Ab, IgG Reflex To Titer 4 IU (0-24)
[2025-06-10 03:26] LABS: Hematocrit 32.2 % (37.0-47.0); Hemoglobin 10.0 g/dL (12.0-16.0); Mean Corp Hgb Conc. 31.1 g/dL (33.0-37.0); Mean Corpuscular Volume 88.5 fL (81.0-99.0); Nucleated Red Blood Cells % 0 %; Platelet Count 168 10^3/uL (130-400); Red Cell Dist. Width 18.5 % (11.5-14.5)
--- NOTE | 2025-06-10 04:16 | PTCARENOTE ---
Systems reviewed, no new changes in assessment. Pt frequently yelling out, confused, pt reminded she is in the hospital and what brought her here. AM labs provided. Safe environment maintained.
[2025-06-10 04:47] LABS: Blood Urea Nitrogen 30 mg/dl (7-17); Calcium 8.3 mg/dl (8.4-10.2); Carbon Dioxide 31 mmol/L (22-30); Chloride 108 mmol/L (98-107); Glucose 83 mg/dl (70-99); Magnesium 1.7 mg/dl (1.6-2.3); Potassium 3.8 mmol/L (3.5-5.1); Sodium 143 mmol/L (135-145)
[2025-06-10 04:57] LABS: Estimated Creatinine Clearance 27 ml/min; eGFR 36.64
[2025-06-10] MEDS: KCL 260 MEQ IV (05:26)
[2025-06-10] MEDS: MAGNESIUM SULFATE 102 GRAMS IV (05:29)
[2025-06-10] MEDS: ADVAIR HFA 115/21 MCG INHALER 2 PUFF INH (07:23)
[2025-06-10] MEDS: ALPHAGAN 0.2% EYE DROPS 1 DROP LEFT EYE (07:36)
[2025-06-10] MEDS: LASIX 80 MG IV (07:37)
[2025-06-10] MEDS: HEPARIN 5000 UNITS SC (07:37)
[2025-06-10] MEDS: STERILE WATER FOR INJECTION IV (07:38)
[2025-06-10] MEDS: TRUSOPT 2% OPHTHALMIC SOLUTION 1 DROP LEFT EYE (07:44)
--- NOTE | 2025-06-10 07:58 | W.PN.INTV ---
Today's Communication / Plan
Recommendations
Plan reviewed with attending.
PO medications continue to be held.
Continue diuresis.
Assessment
-
84-year-old female with a past medical history of hypertension, osteoarthritis, PMR, fibrocystic disease of breast, atrial fibrillation on Eliquis + amiodarone + dyslipidemia who presented with altered mental status, hypoxia and generalized
weakness. She had been admitted recently at [facility] for COVID-19 infection and was discharged to rehab. From there she went to an assisted living facility. Given her development of lower extremity edema and shortness of breath, with
saturations remaining <90% on her baseline 4 L/min, she was sent in for evaluation from her [facility] assisted living. The nurse at [facility] also said that the patient has had multiple falls recently with increased confusion. The
patient was released from the intermediate facility on 05/31. In the ER she was afebrile with normal pulse rate, breathing at 18 breaths/min, BP 108/51 and saturating 96% on 6 L/min. CXR shows multifocal opacities concerning for pneumonia. Of
note, patient's prior CT chest in December 2012 showed mild linear scarring in the lingula + posterior right upper lobe with otherwise small 2-3 mm nodule in the right upper lobe and no evidence of emphysema or pleural effusion, and subsegmental
atelectasis in the bases. Labs significant for mild leukocytosis to 11.3, Hb 11, absolute eosinophils 100, creatinine 1.3, proBNP 7570, mild transaminitis, serum albumin level 2.3, and COVID-19 antigen negative. In the ER patient was given Lasix
20 mg + potassium. She was initially admitted to Telemetry, however given worsening oxygen requirements, she was transferred to the IMU on 06/05 and was placed from midflow NC at 10L/min onto high-flow NC. She remains on midflow nasal cannula at
10L/min with SpO2 96%.
Overnight, transitioned to HFNC due to worsening hypoxemia, transferred to ICU.
Currently weaned oxygen down to oxygen on admission 4L. Pt is altered this morning unable to answer questions appropriately. Continue goals of care conversations.
#Acute hypoxic respiratory failure
- Notable 92% on 8L NC initially--now weaned down on 4L NC
- She has reported history of 4L O2 following last discharge but does not normally use O2 at baseline
- She has never been told she has COPD but was a former smoker, 30 PYS quit about 10 years ago. Never saw Pulmonary as OP
- Empiric cefepime + IV vancomycin stopped
- PCT negative, less likely infection. CT demonstrates pleural effusions and basilar congestion/atelectasis more indicative of fluid overload
- Concern for aspiration- NPO
- Mucolytics
- Maintain SpO2 >90-94% with supplemental O2 as needed
- Continue Advair 115mcg (home med) + prn nebulized bronchodilators
- Incentive spirometer encouraged q1hr while awake
#Acute CHF
- proBNP 7880
- Continue diuresis
- Most likely culprit of pulmonary edema in setting of fluid overload
#Oliguria, LE edema
- Continue diuresis. Reevaluate midday to continue.
- Nephrology following
#Anemia (unknown baseline)
- Trend H/H and transfuse if needed to keep Hb>7g/dL; keep plt>20k, unless there is concern for bleeding then keep plt>50k
#KATIE (unknown baseline)
- Continue diuresis. Cr steadily increasing
- Replete electrolytes with K>4, Mg>2
#Transaminitis
#Hypoalbuminemia
- Improving
#Positive MRSA screen
#Recent multifocal pneumonia/HAP - hospitalized at outside hospital in April 2025
#Hypothyroidism
- Transition to IV levothyroxine. PO held in setting of dysphagia
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
Atrial fibrillation on amiodarone + Eliquis
Chronic hypoxic respiratory failure on home oxygen, 4L
Hypertension
Osteoarthritis
Polymyalgia rheumatica
Giant cell arteritis (2005)
Fibrocystic disease of the breast
Dyslipidemia
Depression
Chronic ETOH abuse s/p fall, laceration to head, ER 2011
Pulmonary nodules on 2013 CT CHEST
Maintain euglycemia with goal BG >100 and <180
DVT ppx: subcut heparin. Unable to take PO eliquis currently
Diet: NPO per speech rec
GOC discussions needed in terms of HD, CPR/intubation. She is now DNR
Data:
CXR 06/04/2025: There are bilateral patchy airspace opacities which likely represent multifocal pneumonia.
06/08/25- Significantly progressed findings concerning for pulmonary edema versus bilateral pneumonia. Probable small left pleural effusion. Improved. Mild cardiomegaly. Stable
CT chest 2012: No acute disease of the chest. Three stable small nodular right upper lobe and right middle lobe suspected nodules as described above. A repeat study in approximately 6-12 months is suggested unless indicated otherwise clinically.
Too small to characterize hypodense renal lesion likely benign cyst.
CHEST CT 06/07/25- No CT evidence for an acute pulmonary thromboembolism. Moderate left and mild to moderate right pleural effusions. Bilateral pulmonary opacities suspicious for a combination of multifocal pneumonia and pulmonary edema. Bilateral
lower lobe volume loss secondary to compressive atelectasis from the pleural fluid. Imaging follow-up to resolution is recommended as an underlying malignancy would be difficult to completely exclude.
ECHO 06/07/25- 1. Normal LV size and function. No regional wall motion abnormalities. The estimated ejection fraction is 60-65%.
2. Indexed left atrial volume is mildly abnormal (35-41 ml/m2).
3. Mildly dilated right atrium.
4. Aortic valve replacement with peak/mean gradients of 33/18 mmHg.
5. There is thickening of the anterior and posterior leaflets of the mitral valve. Mild mitral valve stenosis. mild mitral valve regurgitation.
6. Moderate tricuspid regurgitation. Estimated pulmonary artery pressure of 29 mmHg assuming a right atrial pressure of 3 mmHg.
7. No evidence of pericardial effusion.
8. No prior studies for comparison.
Critical care statement: A total of 75 minutes of critical care time was provided for this patient today. This includes management of unstable vital signs, evaluation of the patient at bedside, reviewing the patient�s pertinent medical records
including radiographs, microbiology, laboratory evaluations, and��discussion with primary team, consultants, pharmacy, nutrition, physical therapy, case management, charge nurse, critical care nursing, and respiratory therapy. Reviewed case with
team extensively.
Subjective Dataa
Subjective Data
Date of Service:
Date of Service: June 10, 2025
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
Subjective:
Pt is confused this morning only reporting feeling cold, answering questions inappropriately.
Objective Data
Data Reviewed
Vital Signs / I&O / Oxygen:
Vital Signs
Temp Pulse Resp BP Pulse Ox
97.6 F 60 21 110/54 90
06/10/25 03:04 06/10/25 07:37 06/10/25 07:29 06/10/25 07:37 06/10/25 07:29
Intake and Output
06/09/25 06/10/25 06/11/25
06:59 06:59 06:59
Intake Total 625 / 625 632 / 632
Output Total 2877 / 2877 2074 / 2074
Balance -2252 / -2252 -1443 / -1443
SaO2 90
Nasal Cannula flow liters per 15
minute
Physical Exam
General: Respiratory Distress (mild, dyspneic appearing but can converse), Comfortable and Other (NAD)
HEENT: Normocephalic and Anicteric
Cardiovascular: S1-S2, Regular Rhythm and Peripheral Edema (2+ BL)
Respiratory: Wheeze, Crackles and Non-Labored Respirations (on 50L HFNC 60%)
GI: Soft, Non Distended and Non Tender
Neurology: Awake, Alert, Oriented (waxing/waning orientation) and No Motor Deficits
Skin: Warm, Dry and Good Color
Labs/Micro/Reports
Lab Data
06/10/25 03:07
06/10/25 04:06
--- NOTE | 2025-06-10 08:00 | PTCARENOTE ---
recd pt asleep, awakened briefly for assessment, confused, cooperative at present. Oral care given.
--- NOTE | 2025-06-10 08:39 | W.PN.CARDCBS ---
Today's Communication / Plan
-
Pt to hospice
will sign off
Impression / Plan
-
.
PCP: Dr. Chris Taylor
Cnc Supervisor: Dr. Js Ornelas with [facility] cardiology [[phone]]
Impression:
Admitted with acute hypoxic respiratory failure with CHF and PNA 06/04/2025
Acute hypoxic respiratory failure
Admissions to [facility] for PNA and COVID 04/11/2025 and 05/12/2025
Paroxysmal A-fib
Chronic Eliquis OAC
Chronic amiodarone and digoxin therapy
PPM, possibly [employer], 2021
HTN
s/p TAVR for severe at [facility] 2019
History of aortic stenosis status post TAVR, details unclear believe occurred at [place] in 2019
Osteoarthritis
Polymyalgia rheumatica
Tobacco dependence
Echo 06/07/2025: EF 60-65%. Aortic valve replacement with peak/mean gradients of 33/18 mmHg. Mild mitral valve stenosis. mild mitral valve regurgitation.
Moderate tricuspid regurgitation. Estimated pulmonary artery pressure of 29 mmHg assuming a right atrial pressure of 3 mmHg. No evidence of pericardial effusion.
Plan:
Pt continued to decline and prognosis poor
Concern for aspiration. Recent VSE at [facility] consistent with severe aspiration and proximal esophageal dysfunction
Cr worsened
AV paced
After discussion with team, family opted for comfort care/hospice
Will sign off.
Progress Note - Cnc Supervisor
Subjective
Date of Service: June 10, 2025
Pt seen and examined. poor respsone
Objective
Labs:
06/10/25 03:07
06/10/25 04:06
Labs
Hgb 10.0 g/dL (12.0-16.0) L 06/10/25 03:07
Hct 32.2 % (37.0-47.0) L 06/10/25 03:07
Plt Count 168 10^3/uL (130-400) 06/10/25 03:07
Sodium 143 mmol/L (135-145) 06/10/25 04:06
Potassium 3.8 mmol/L (3.5-5.1) 06/10/25 04:06
BUN 30 mg/dl (7-17) H 06/10/25 04:06
Creatinine 1.4 mg/dL (0.6-1.0) H 06/10/25 04:06
Glucose 83 mg/dl (70-99) 06/10/25 04:06
Digoxin 1.9 ng/ml (0.8-2.0) 06/07/25 05:04
Vital Signs and I&O:
Vital Signs
Temp Pulse Resp BP Pulse Ox
97.5 F 60 21 110/54 90
06/10/25 08:00 06/10/25 07:37 06/10/25 07:29 06/10/25 07:37 06/10/25 07:29
Vital Signs
Temp Pulse Resp BP Pulse Ox
97.5 F 60 21 110/54 90
06/10/25 08:00 06/10/25 07:37 06/10/25 07:29 06/10/25 07:37 06/10/25 07:29
Intake & Output
06/08/25 06/09/25 06/10/25 06/11/25
06:59 06:59 06:59 06:59
Intake Total 715 / 715 625 / 625 632 / 632
Output Total 500 / 500 2877 / 2877 2074 / 2074
Balance 215 / 215 -2252 / -2252 -1443 / -1443
Physical Exam
Physical Exam
General: leathargic
Neck: Negative JVD
Heart: Regular, Negative S3 positive S1/S2, Negative S4, No murmur
Lungs: CTA b/l, negative wheezes/rales/rhonchi
Abd: Positive BS, NT/ND, neg rebound/rigidity/guarding
Ext: Negative cyanosis/clubbing/edema
Neuro: nonfocal
--- NOTE | 2025-06-10 10:03 | PTCARENOTE ---
CXR obtained portable, pt restless, pulling off blankets, repositioned. Minimal activity led to moderate SOB, 'I can't breathe' sats with good pleth high 60s very briefly, presently 91% on 4l and more comfortable, watching TV, supported on pillows.
--- NOTE | 2025-06-10 11:43 | HOSPNOTE ---
Hospice referral received and will discuss with Attending in regards to inpatient hospice. Will await to hear. More information to follow.
--- NOTE | 2025-06-10 11:46 | W.PN.NEPH.PH ---
Today's Communication / Plan
-
comfort
Assessment/Plan
-
84-year-old female with a past medical history of hypertension, osteoarthritis, PMR, fibrocystic disease of breast, atrial fibrillation on Eliquis + amiodarone + dyslipidemia who presented with altered mental status, hypoxia and generalized
weakness. She had been admitted recently at [facility] for COVID-19 infection and was discharged to rehab. From there she went to an assisted living facility. Given her development of lower extremity edema and shortness of breath, with
saturations remaining <90% on her baseline 4 L/min, she was sent in for evaluation from her [facility]
Renal consultation for oliguria with increasing cr.
Workup includes pneumonia, CHF on high flow
Impression
Acute on chronic kidney disease with oliguria
Pneumonia/CHF= bilateral pulmonary edema small effusions on imaging
Hypoalbuminemia 1.9
Transaminitis hepatic congestion
Chronic home O2 4 L
Plan.
family opted for comfort care
will sign off
-
-
Date of Service: June 10, 2025
CC / HPI / ROS
-
Chief Complaint:
KATIE
History of Present Illness:
KATIE/Cr up to 1.4
diuresing with IV lasix for decompensated HF
abx for PNA
BP stable
lynch in place
critically ill in ICU
Review of Systems:
lethargic
no fever
Labs
-
Labs:
WBC 11.0 10^3/uL (4.8-10.8) H 06/10/25 03:07
RBC 3.64 10^6/uL (4.20-5.40) L 06/10/25 03:07
Hgb 10.0 g/dL (12.0-16.0) L 06/10/25 03:07
Hct 32.2 % (37.0-47.0) L 06/10/25 03:07
Plt Count 168 10^3/uL (130-400) 06/10/25 03:07
Sodium 143 mmol/L (135-145) 06/10/25 04:06
Potassium 3.8 mmol/L (3.5-5.1) 06/10/25 04:06
Chloride 108 mmol/L (98-107) H 06/10/25 04:06
Carbon Dioxide 31 mmol/L (22-30) H 06/10/25 04:06
BUN 30 mg/dl (7-17) H 06/10/25 04:06
Creatinine 1.4 mg/dL (0.6-1.0) H 06/10/25 04:06
eGFR 36.64 06/10/25 04:06
Glucose 83 mg/dl (70-99) 06/10/25 04:06
Calcium 8.3 mg/dl (8.4-10.2) L 06/10/25 04:06
Yrh-M-Rwoynscakvb Pept 7880 pg/ml 06/08/25 03:36
Albumin 1.9 g/dl (3.5-5.0) L 06/08/25 03:36
Physical Exam
-
Vital Signs:
Vital Signs
Temp Pulse Resp BP Pulse Ox
97.5 F 67 27 109/58 93
06/10/25 08:00 06/10/25 11:00 06/10/25 11:00 06/10/25 11:00 06/10/25 11:00
Cardiovascular:: Regular rate and rhythm
Respiratory:: Bilateral: Coarse
Lung Excursion:: Normal
Abdomen:: Nontender and Soft
Bowel Sounds:: Normal
Extremity Edema:: +1: Bilateral:
--- NOTE | 2025-06-10 12:12 | HOSPNOTE ---
Spoke with family and they are in agreement with hospice services. Patient will remain inpatient hospice for severe shortness of breath. Admissions was called and consents are signed. Attending and CM updated with plan.
--- NOTE | 2025-06-10 13:36 | W.PN.HOSP.TC ---
Addendum entered and electronically signed by Bird Sena MD 06/11/25 13:49:
Stage 2 sacrum pressure injury, POA
Original Note:
Today's Communication/Plan
-
Hospice evaluation
Comfort measures
Assessment / Plan
Assessment / Plan
Impression:
Acute hypoxic respiratory failure
Multifocal bilateral infiltrates.
KATIE
Hypoalbuminemia
Toxic metabolic encephalopathy secondary to acute illness and
Conditions prior to admission:
Paroxysmal atrial fibrillation.
Amiodarone therapy.
Anticoagulation with Eliquis.
Status post dual-chamber PPM
Essential hypertension.
Aortic stenosis status post TAVR 2019
Hypothyroidism on replace
Tobacco use disorder.
Plan:
Rapidly deteriorating clinical course
Multiorgan failure with worsening metabolic encephalopathy, hypoxic respiratory failure, renal failure.
Discussed with patient's daughter at the bedside.
Discussed with multiple services.
Respecting patient and family wishes, plan is to transition to comfort care.
Hospice consultation
Anticipated Discharge: 24 - 48 hours
Subjective/Interval History
-
Date of Service: June 10, 2025
Objective Data
-
Labs:
Laboratory Results
06/10/25 06/10/25
03:07 04:06
WBC 11.0 H
Hgb 10.0 L
Hct 32.2 L
Plt Count 168
Sodium Cancelled 143
Potassium Cancelled 3.8
Chloride Cancelled 108 H
Carbon Dioxide Cancelled 31 H
BUN Cancelled 30 H
Creatinine Cancelled 1.4 H
Glucose Cancelled 83
Calcium Cancelled 8.3 L
Vital Signs:
Vital Signs
Temp Pulse Resp BP Pulse Ox
97.5 F 67 27 109/58 93
06/10/25 08:00 06/10/25 11:00 06/10/25 11:00 06/10/25 11:00 06/10/25 11:00
I&O
06/09/25 06/10/25 06/11/25
06:59 06:59 06:59
Intake Total 625 / 625 632 / 632
Output Total 2877 / 2877 2075 / 207 900 / 900
Balance -2252 / -2252 -1443 / -1443 -900 / -900
Physical Exam
-
General: Well Developed and No Apparent Distress
HEENT: Normocephalic, Atraumatic and Moist Mucous Membranes
Respiratory: Decreased Breath Sounds (Bilaterally at the bases); Negative Wheezes
Cardiac: Regular Rhythm and S1/S2; Negative Murmur, Rub or Gallop
GI: Soft, Nontender, Nondistended and Normal Bowel Sounds; Negative Organomegaly
Rectal: Deferred by Provider
Musculoskeletal: No Clubbing, No Cyanosis and No Edema
Skin: Negative Rash
Neuro: Awake, Alert and Nonfocal/Grossly Intact; Negative Oriented (Disoriented)
--- NOTE | 2025-06-10 13:45 | TRANSFER ---
transported via bed to [facility] room 2126 on 2N, report by phone to next RN, handoff to receiving staff. visitor accompanied, pt interactive and awake at present, settled in room.
--- NOTE | 2025-06-10 15:06 | CM ---
Hospice eval and treat. Accepted to inpatient hospice. Transferred to Room 2126.
== END 2025-06-10 15:40 | disposition hospice, inpatient (51) | DRG 177 ==
LOC: 2 NORTH 21:37
PROVIDERS: Emergency Medicine; Family Medicine; Nurse Practitioner Family; Registered Nurse; Specialist; ADMITTING PHYSICIAN Internal Medicine; ATTENDING PHYSICIAN Internal Medicine; EMERGENCY PHYSICIAN Emergency Medicine; FAMILY PHYSICIAN Internal Medicine; OTHER PHYSICIAN Internal Medicine Cardiovascular Disease; OTHER PHYSICIAN Internal Medicine Critical Care Medicine; OTHER PHYSICIAN Internal Medicine Nephrology
PROC: 5A0935A Assistance with Respiratory Ventilation, Less than 24 Consecutive Hours, High Flow/Velocity Cannula (ICD-10-PCS; 2025-06-05)
DX: J69.0 Pneumonitis due to inhalation of food and vomit (principal); G92.8 Other toxic encephalopathy; J96.21 Acute and chronic respiratory failure with hypoxia; I50.33 Acute on chronic diastolic (congestive) heart failure; I13.0 Hypertensive heart and chronic kidney disease with heart failure and stage 1 through stage 4 chronic kidney disease, or unspecified chronic kidney disease; N17.9 Acute kidney failure, unspecified; J44.0 Chronic obstructive pulmonary disease with (acute) lower respiratory infection; Z51.5 Encounter for palliative care; Z66 Do not resuscitate; F01.53 Vascular dementia, unspecified severity, with mood disturbance; E03.9 Hypothyroidism, unspecified; N18.9 Chronic kidney disease, unspecified; M35.3 Polymyalgia rheumatica; R29.6 Repeated falls; I48.0 Paroxysmal atrial fibrillation; E78.00 Pure hypercholesterolemia, unspecified; E86.0 Dehydration; E88.09 Other disorders of plasma-protein metabolism, not elsewhere classified; R62.7 Adult failure to thrive; Z68.25 Body mass index [BMI] 25.0-25.9, adult; K76.1 Chronic passive congestion of liver; F32.A Depression, unspecified; D63.1 Anemia in chronic kidney disease; L89.152 Pressure ulcer of sacral region, stage 2; Z88.0 Allergy status to penicillin; Z88.1 Allergy status to other antibiotic agents; Z95.0 Presence of cardiac pacemaker; Z95.2 Presence of prosthetic heart valve; Z99.81 Dependence on supplemental oxygen; Z79.899 Other long term (current) drug therapy; Z79.890 Hormone replacement therapy; Z86.16 Personal history of COVID-19; Z88.6 Allergy status to analgesic agent; Z79.01 Long term (current) use of anticoagulants; Z79.84 Long term (current) use of oral hypoglycemic drugs; Z22.322 Carrier or suspected carrier of Methicillin resistant Staphylococcus aureus; Z87.891 Personal history of nicotine dependence; Z11.52 Encounter for screening for COVID-19; Z87.01 Personal history of pneumonia (recurrent)
CPT/HCPCS: 36600; 71045; 71046; 71275; 80048; 80053; 80162; 80202; 81003; 81015; 82164; 82570; 82785; 82805; 82962; 83516; 83735; 83880; 84145; 84156; 84439; 84443; 84484; 85025; 85027; 85652; 86038; 86225; 86235; 87502; 87641; 87811; 92526; 92610; 93005; 93306; 94640; 94760; 96374; 97163; 97167; 97530; 99285; P9047; Q9967

== ENCOUNTER 2025-06-10 15:42 | Inpatient (IN) | payer OTHER, SELFPAY ==
[2025-06-10] MEDS: VALIUM INJECTION 5 MG IV ×3 (17:17→22:31)
--- NOTE | 2025-06-10 18:55 | HOSPNOTE ---
Patient admitted to inpatient hospice. Patient will be seen daily by Hospice.
[2025-06-10 19:15] VITALS: BP 79/45
[2025-06-10] MEDS: MORPHINE SULFATE 2 MG IV ×3 (19:35→21:38)
[2025-06-10] MEDS: ROBINUL 0.2 MG IV (21:34)
[2025-06-10] MEDS: MORPHINE 100 IV (22:33)
--- NOTE | 2025-06-10 22:45 | PTCARENOTE ---
Morphine gtt step 1 started at 22:33. See MAR and work list for comfort scores.
[2025-06-11] MEDS: ROBINUL 0.2 MG IV ×3 (03:19→13:51)
[2025-06-11] MEDS: VALIUM INJECTION 5 MG IV ×4 (03:19→13:52)
[2025-06-11] MEDS: MORPHINE SULFATE 2 MG IV ×6 (04:01→17:29)
--- NOTE | 2025-06-11 09:11 | HOSPNOTE ---
Inclusion Intern visited 84 year old patient to conduct Initial PLANNING AND ANALYSIS MANAGER Assessment. Patient recently admitted onto Hospice Services and GIP Level of Care with the Primary Diagnosis of CHF. Nurse reported medications administered, including morphine
drip, and patient resting, no concerns. PLANNING AND ANALYSIS MANAGER greeted patient and family members who were present at patient's bedside upon entering her room. Patient's daughters Lashaun and Alida greeted PLANNING AND ANALYSIS MANAGER and introduced themselves. Lashaun is the Primary
Caregiver and Primary POA and Alida is Secondary POA. Patient asleep and appeared to be resting comfortably, no signs of pain and/or distress observed. PLANNING AND ANALYSIS MANAGER complemented patient's beautiful blanket and her stuffed puppy, Alida responded everyone
loves this blanket, Lashaun responded her friend Claritza made it for the patient from the pictures she had of patient's grandchildren and great grandchildren and Hope is her support dog given to her 2 months ago hoping she would get better and it's
been with her every since.
They shared patient had 3 daughters Alida Wilks, [place] the oldest passed in 2018 from Ovarian Cancer, she has 4 grandchildren, and 6 great grandchildren, they are supportive and coping appropriately. Alida reported she has her sister, her
daughter, her dog, and friends for support and Lashaun reported she has her friend Claritza, her sister, her niece, and her dog for support. Patient earned her degree at the age of 36 and it was difficult getting a job that late in her career,
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 She loved shopping, crossword puzzles, [employer], watching Jeopardy, preparing for the Thanksgiving and [place], and they loved her Beef Barley and
Chicken Soup. Patient is Catholic, she affiliated with [address] [place], [place] [address] and [facility] in [place], her wishes are to be cremated and ashes scattered with her daughter [place] in the [place] in [place], however Lashaun will keep the ashes
at this time. [facility] located at [address] [place] [id number] is in charge of these arrangements. Family is interested in Bereavement Services. Prayer and Emotional Support Provided
Patient meets [facility] criteria for SN assessments, management of pain and dyspnea that could not be managed at home and/or in an Outpatient setting.
PLANNING AND ANALYSIS MANAGER will provide supportive services and monitor for additional services once a week while on GIP Level of Care.
[2025-06-11 09:16] VITALS: BP 115/47
--- NOTE | 2025-06-11 10:10 | CM ---
CM following re: discharge planning.
Pt admitted to inpatient hospice care with hospice GIP.
CM is available for emotional support.
--- NOTE | 2025-06-11 12:23 | HOSPNOTE ---
Patient is on a step 2 morphine drip. Patient is now on room air. Family is present at bedside, Decreased urine output noted, patient is unresponsive at this time having slight periods of apnea, patient is actively dying and encouraged nurse to
please medicate prior to turning or repositioning. Patient continues to meet inpatient criteria for management of shortness of breath and pain. Patient will be seen daily.
--- NOTE | 2025-06-11 12:25 | CHAP ---
Emotional and spiritual support provided. Prayers shared.
--- NOTE | 2025-06-11 12:25 | W.PN.HOSP.TC ---
Today's Communication/Plan
-
Hospice care
Assessment / Plan
Assessment / Plan
Impression:
Acute hypoxic respiratory failure
Multifocal bilateral infiltrates.
KATIE
Hypoalbuminemia
Toxic metabolic encephalopathy secondary to acute illness and
Conditions prior to admission:
Paroxysmal atrial fibrillation.
Amiodarone therapy.
Anticoagulation with Eliquis.
Status post dual-chamber PPM
Essential hypertension.
Aortic stenosis status post TAVR 2019
Hypothyroidism on replace
Tobacco use disorder.
Plan:
Rapidly deteriorating clinical course
Multiorgan failure with worsening metabolic encephalopathy, hypoxic respiratory failure, renal failure.
Discussed with patient's daughter at the bedside.
Discussed with multiple services.
Respecting patient and family wishes, plan is to transition to comfort care.
Continue hospice/comfort care.
Given respiratory distress transition to IV morphine drip with titration.
Anticipated Discharge: 24 - 48 hours
Subjective/Interval History
-
Date of Service: June 11, 2025
Objective Data
-
Vital Signs:
Vital Signs
Temp Pulse Resp BP Pulse Ox
98.1 F 61 14 115/47 87
06/11/25 09:16 06/11/25 09:16 06/11/25 09:16 06/11/25 09:16 06/11/25 09:16
Physical Exam
-
General: No Apparent Distress
HEENT: Normocephalic, Atraumatic and Moist Mucous Membranes
Respiratory: Decreased Breath Sounds
Cardiac: Regular Rhythm and S1/S2; Negative Murmur, Rub or Gallop
GI: Soft, Nontender, Nondistended and Normal Bowel Sounds; Negative Organomegaly
Rectal: Deferred by Provider
Musculoskeletal: No Clubbing, No Cyanosis and No Edema
Skin: Negative Rash
Neuro: Nonfocal/Grossly Intact and Other (Unresponsive)
--- NOTE | 2025-06-11 18:43 | W.PN.DEATH ---
Pronouncement of
-
Called to see patient to pronounce.
No spontaneous heart tones or respirations noted.
Patient not responsive to verbal stimuli.
Patient is pronounced .
Time of : 18:35
Date of : 06/11/25
Cause of : Aspiration pneumonia
Family Notified: Yes
--- NOTE | 2025-06-11 18:45 | W.DCSUMMARY ---
Discharge Summary
Discharge Data
Date of Admission: 06/10/25
Date of Discharge: 06/11/25
-
Pending Results: No
Hospital Course
esvin is an 84-year-old female with
multiple medical problems with extensive medically complicated
medical history including paroxysmal atrial fibrillation, status
post ppm, essential hypertension, hypothyroidism, dementia, suspect
vascular type, prior tobacco use disorder. Also with recent
hospitalization, particularly recent one in outside hospital where
patient was found to have a severe aspiration disorder/syndrome.
Patient presents with acute hypoxic respiratory failure with a
chest x-ray and CT scan confirming bilateral multifocal
infiltrates. Her differential diagnosis was combination of severe
aspiration pneumonia with acute hypoxic respiratory failure likely
with component of acute CHF with preserved ejection fraction.
Hospital course was also complicated with toxic metabolic
encephalopathy. Patient was transferred to intensive care unit. She
was placed on broad-spectrum antibiotics, had multiple consultants
called including Pulmonology, Nephrology and Cardiology. There was
an attempt of IV diuresis with addition of albumin. Patient had a
speech and swallow evaluation that confirmed severe aspiration with
recommendation of nothing per mouth.
Over the course of the next 48 hours, patient persistently
deteriorating in terms of mental status and also worsening of renal
function and in discussion with patient's family and respecting
patient's will not to pursue any aggressive heroic measures of life
support, patient being transitioned to comfort care with transition
to inpatient hospice. Patient with family bedside on 06/11/25 at 6:35pm
Patient was managed for:
#Aspiration pneumonia
#Acute hypoxic respiratory failure
#Acute on chronic HFpEF
#Acute metabolic encephaloapthy
#Dysphagia
#Hypothyroidism
#Paroxysmal Afib
#SSS s/p PPM
#Essential HTN
#Dementia, most likely vascular
Discharge Plan
-
Patient Disposition:
Discharge Date and Time
Print Language: URDU
--- NOTE | 2025-06-11 20:50 | PTCARENOTE ---
Pt and pronounced on previous shift. Family at bedside. [facility] contacted, postmortem care performed, 2 PIVs removed, when family left. Personal belongings (blanket) sent w/patient.
== END 2025-06-11 18:35 | disposition expired | DRG 951 ==
LOC: 2 NORTH 15:42
PROVIDERS: ADMITTING PHYSICIAN Internal Medicine
DX: Z51.5 Encounter for palliative care (principal); I50.33 Acute on chronic diastolic (congestive) heart failure; J69.0 Pneumonitis due to inhalation of food and vomit; J96.01 Acute respiratory failure with hypoxia; G92.8 Other toxic encephalopathy; N17.9 Acute kidney failure, unspecified; E03.9 Hypothyroidism, unspecified; I11.0 Hypertensive heart disease with heart failure; I48.0 Paroxysmal atrial fibrillation; I49.5 Sick sinus syndrome; F01.50 Vascular dementia, unspecified severity, without behavioral disturbance, psychotic disturbance, mood disturbance, and anxiety; Z87.891 Personal history of nicotine dependence; Z95.0 Presence of cardiac pacemaker; Z95.2 Presence of prosthetic heart valve; Z79.01 Long term (current) use of anticoagulants; Z79.890 Hormone replacement therapy